=== PATIENT | female | born 1980 | race Caucasian/White ===

== ENCOUNTER 2020-02-10 22:35 | Emergency (ER) | payer MEDICAID, SELFPAY ==
[2020-02-10 22:50] VITALS: BP 127/81; PULSE 75; RESP 18; TEMP 37.1; O2SAT 93; BMI 31.8
--- NOTE | 2020-02-10 22:56 | PC.NURSE ---
PATIENT STATES SHE CANNOT GET HER PEE TO COME OUT UNLESS SHE COUGHS I AM SWELLED UP AND CANNOT EMPTY MY BOWELS PATIENT STATES THAT HER LEGS FEEL LIKE THEY ARE VERY HEAVY AND SHE HURTS IN HER LEGS, ABDOMEN, AND BACK. PATIENT STATES THAT HER WHOLE ABDOMEN HURTS AND FEELS AND LOOKS SWOLLEN.
[2020-02-10 23:02] VITALS: BP 154/101; PULSE 70; RESP 14; O2SAT 95
--- NOTE | 2020-02-10 23:35 | CTR_ITS ---
PROCEDURE INFORMATION: Exam: CT Lumbar Spine Without Contrast Exam date and time: 02/10/2020 12:06 AM Age: 40 years old Clinical indication: Low back pain; Prior surgery; Surgery date: 6+ months; Surgery type: L-spine, hyst TECHNIQUE: Imaging protocol: Computed tomography images of the lumbar spine without contrast. Total DLP: 2041.67 mGy-cm Radiation optimization: All CT scans at this facility use at least one of these dose optimization techniques: automated exposure control; mA and/or kV adjustment per patient size (includes targeted exams where dose is matched to clinical indication); or iterative reconstruction. COMPARISON: [place] [id number] 12/24/2013 11:05 AM FINDINGS: A transitional lumbosacral vertebra demonstrating left-sided partial sacralization is appreciated. L2 corpectomy and L1-L3 spinal fusion changes are appreciated. Mild facet osteoarthritis is seen in the lumbosacral spine region. No canal stenosis is seen. Is is No acute fracture is visualized. Ligamentum flavum hypertrophy and calcifications are present at L2-L3. Spinal alignment is normal. Small renal stones are observed in both kidneys. No hydronephrosis. CT/CT lumbar spine wo con* [id number] IMPRESSION: 1. Mild lumbar spine spondylosis. 2. Nephrolithiasis. Radiation Dose CTDIVOL = (mGy): DLP = 2041.67 (mGy-cm)
--- NOTE | 2020-02-10 23:35 | CTR_ITS ---
PROCEDURE INFORMATION: Exam: CT Abdomen And Pelvis With Contrast Exam date and time: 02/10/2020 12:06 AM Age: 40 years old Clinical indication: Abdominal pain; Generalized; Prior surgery; Surgery date: 6+ months; Surgery type: Hyst, l-spine; Additional info: Abd pain TECHNIQUE: Imaging protocol: Computed tomography of the abdomen and pelvis with intravenous contrast. Total DLP: 1062.18 mGy-cm Radiation optimization: All CT scans at this facility use at least one of these dose optimization techniques: automated exposure control; mA and/or kV adjustment per patient size (includes targeted exams where dose is matched to clinical indication); or iterative reconstruction. Contrast material: OMNI 300; Contrast volume: 95 ml; Contrast route: IV; COMPARISON: CR Pelvis AP 1 or 2 views* [id number] 05/16/2019 7:55 PM FINDINGS: Liver: Mild hepatic steatosis is appreciated. Gallbladder and bile ducts: Normal. No calcified stones. No ductal dilation. Pancreas: Normal. No ductal dilation. Spleen: Normal. No splenomegaly. Adrenals: Normal. No mass. Kidneys and ureters: Tiny renal stones are present in both kidneys. Several subcentimeter round hypodense lesions are present in both kidneys that are too small to characterize but are likely small cysts. No ureteral stone or hydronephrosis. Stomach and bowel: Unremarkable. No obstruction. No mucosal thickening. Appendix: The appendix is normal. Intraperitoneal space: Unremarkable. No free air. No significant fluid collection. Vasculature: Unremarkable. No abdominal aortic aneurysm. Lymph nodes: Unremarkable. No enlarged lymph nodes. Bladder: Urinary bladder wall thickening is noted. Reproductive: The uterus is absent. The ovaries appear normal. Bones/joints: L2 corpectomy and L1-L3 spinal fusion changes are noted. Mild degenerative changes are seen in the lumbar spine and bilateral SI joints. A right hip arthroplasty is appreciated. Soft tissues: Unremarkable. CT/CT abdomen pelvis w con* [id number] IMPRESSION: 1. Possible mild cystitis, correlate with urinalysis. 2. Nephrolithiasis. No ureteral stone or hydronephrosis. 3. Mild hepatic steatosis. COMMENTS: Consistent with the [employer]'s Incidental Findings Committee white paper (J Am Violeta Radiol 2018): Any incidental cystic renal lesion classified in this report as too small to characterize or simple appearing is likely a benign cyst. No follow-up imaging is recommended for these lesions per consensus recommendations based on imaging criteria. Radiation Dose CTDIVOL = (mGy): DLP = 1062.18 (mGy-cm)
--- NOTE | 2020-02-10 23:44 | W.ED.ABDPA2 ---
HPI - Abdominal Pain General: Chief Complaint: Abdominal Pain Stated Complaint: abdominal pain, trouble walking Time Seen by Provider: 02/10/20 22:44 History of Present Illness: HPI narrative: 40-year-old female presents with back and abdominal pain. She states that she has been constipated, and has been having trouble emptying her bladder. She can only urinate when she coughs hard. She relates this to back pain that is been going on for 1.5 years. She has been seen multiple times for this complaint. She was diagnosed 4 days ago with a urinary tract infection. Denies any fever. She denies any vomiting. She states she has had chronic back pain for years and has had surgery on her back. Again she has had similar complaints, for which she has presented to the ER before. She had an MRI that was negative for any spinal stenosis in May. MD elicited complaint: abdominal pain Pertinent past history: constipation and past UTI Onset (ago): year(s) (1.5) Pain Consistency: constant Severity: similar to previous episodes Quality: cramping Migration to: other (back) Relieving factors: nothing Associated Symptoms: Denies chills, dysuria, fever(s), hematuria, nausea and vomiting Review of Systems Const: Denies: fever or chills Eyes: Denies: change in vision or blurry vision ENMT: Denies: painful swallowing or post nasal drip Card: Denies: chest pain, palpitations or edema Resp: Denies: shortness of breath, productive cough, non-productive cough or wheezing GI: Reports: abdominal pain; Denies: nausea or vomiting : Reports: urinary urgency; Denies: painful urination, urinary frequency or blood in urine Musc: Reports: back pain; Denies: neck pain, redness or joint warmth Skin/Breast: Denies: rash, itching or redness Neuro: Denies: headache, dizziness or vertigo Psych: Denies: anxiety PFSH ED PFSH: Social History Smoking and tobacco status: current every day smoker Physical Exam Const: GENERAL APPEARANCE: well developed ORIENTATION/CONSCIOUSNESS: Yes oriented to person, Yes oriented to place and Yes oriented to time HENMT: COMMON NORMALS: external ears normal and external nose normal FACE & SINUS: normal facial exam NOSE: external nose normal and no nasal discharge EXTERNAL EAR: Yes external ears normal MOUTH: tongue normal Eye: COMMON NORMALS: PERRL, EOMs intact bilaterally and conjunctivae normal EYELID: eyelids normal CONJUNCTIVA: Yes conjunctivae normal PUPIL: Yes PERRL Neck/C-Spine: COMMON NORMALS: full ROM GENERAL: No tracheal deviation Chest: COMMONS NORMALS: inspection of chest normal CHEST: No tenderness Resp: COMMON NORMALS: clear to auscultation bilaterally EFFORT & INSPECTION: No tachypneic, No respiratory distress, No retractions, No uses accessory muscles and No tracheal deviation AUSCULTATION: clear to auscultation bilaterally, no rhonchi, no wheezes and lung sounds not diminished Cardio: COMMON NORMALS: regular rate and regular rhythm RATE: regular rate RHYTHM: regular rhythm HEART SOUNDS: no murmurs PERIPHERAL PULSES: radial pulses present GI: INSPECTION: No abdominal distension AUSCULTATION: No hyperactive bowel sounds and No hypoactive bowel sounds PALPATION: No guarding and No rigid PERCUSSION: no dullness to percussion and no tympanic to percussion Neuro: SENSORIUM/ORIENTATION: Yes oriented to person, Yes oriented to place and Yes oriented to time Psych: COMMON NORMALS: mental status grossly normal Skin: COMMON NORMALS: no rashes or lesions noted GENERAL SKIN EXAM: no rashes or lesions noted Course Vital Signs: Vital signs: Vital Signs Temperature 98.7 F 02/10/20 22:50 Pulse Rate 71 02/11/20 02:27 Respiratory Rate 12 02/11/20 02:27 Blood Pressure 120/66 02/11/20 02:27 Pulse Oximetry 98 02/11/20 02:27 MDM - Abdominal Pain MDM Narrative: Medical decision making narrative: 40-year-old female presenting with abdominal pain, back pain, and inability to urinate. She states she can only urinate when she coughs in small amounts. She has been diagnosed with a cystitis several times. She just finished a round of antibiotics. Her white blood cell count is normal. Her hemoglobin is 14. Her urinalysis is essentially negative, but again she just finished antibiotics for cystitis. CT of the belly shows evidence of cystitis. No other acute findings. CT of the lumbar spine fails to reveal any central canal stenosis. She had an MRI for similar complaints back in May that was negative for any central canal stenosis. She was straight cathed, with 425 cc out. She is positive for amphetamines. Obviously sympathomimetics would cause urinary retention symptoms. This was explained to her. She will be treated for continued cystitis. She was told to follow-up with urology following her primary care appointment for this chronic complaint. Lab Data: Labs: Lab Results 02/10/20 02/10/20 02/10/20 Range/Units 23:40 23:40 23:40 WBC 8.2 (4.0-10.0) 10^3/ uL RBC 4.48 (4.1-5.3) 10^6/u L Hgb 13.8 (11.5-15.3) g/dL Hct 42.6 (37.0-47.0) % MCV 95.1 (81-99) fL MCH 30.8 (28.0-34.0) pg MCHC 32.4 (30.0-36.0) g/dL RDW 13.2 (12.1-15.1) % Plt Count 192 (130-400) 10^3/c mm MPV 11.1 H (7.4-10.4) fL Neut % (Auto) 72.7 % Lymph % (Auto) 18.9 % [place] % (Auto) 7.2 % Eos % (Auto) 0.7 % Baso % (Auto) 0.1 % Neut # (Auto) 6.0 (1.8-7.7) 10^3/u L Lymph # (Auto) 1.6 (0.8-4.8) 10^3/u L [place] # (Auto) 0.6 (0.2-0.9) 10^3/u L Eos # (Auto) 0.1 (0.0-0.8) 10^3/u L Baso # (Auto) 0.0 (0.0-0.1) 10^3/u L Nucleated RBC % (a uto) 0 % Nucleated RBCs # 0.0 /100WBC Sodium 136 (136-145) mmol/L Potassium 3.5 (3.5-5.1) mmol/L Chloride 100 (98-107) mmol/L Carbon Dioxide 23 (22-29) mmol/L Anion Gap 16.5 (5-19) BUN 9 (6-20) mg/dL Creatinine 0.6 (0.5-0.9) mg/dL GFR Calculation 111.9 (90-130) mL/min Glucose 104 (65-115) mg/dL Calculated Osmolal ity 278 L (285-295) mOsm/k g Calcium 9.5 (8.5-10.5) mg/dL Total Bilirubin 0.5 (0.15-1.2) mg/dL AST 39 H (0-32) U/L ALT 56 H (0-33) U/L Alkaline Phosphata se 68 (35-105) IU/L Creatine Kinase 95 (26-192) U/L Total Protein 6.7 (6.6-8.7) g/dL Albumin 4.1 (3.5-5.2) g/dL Globulin 2.6 (1.3-4.6) g/dL Vitamin B12 399 (232-1245) pg/mL HCG, Qual Negative (Negative) Urine Color (Yellow) Urine Appearance (CLEAR) Urine pH (5-7) Ur Specific Gravit y (1.005-1.030) Urine Protein (Negative) Urine Glucose (UA) (Normal) Urine Ketones (Negative) Urine Blood (Negative) Urine Nitrate (Negative) Urine Bilirubin (NEGATIVE) Urine Urobilinogen (Negative) mg/dL Ur Leukocyte Kamla ase (Negative) Urine Opiates Scre en (Negative) ng/mL Ur Barbiturates Sc reen (Negative) ng/mL Ur Phencyclidine S crn (Negative) ng/mL Ur Amphetamines Sc reen (Negative) ng/mL U Benzodiazepines Scrn (Negative) ng/mL Urine Cocaine Scre en (Negative) ng/mL U Marijuana (THC) Screen (Negative) ng/mL Ethyl Alcohol < 10 (0-10) mg/dL 02/11/20 02/11/20 Range/Units 00:06 00:06 WBC (4.0-10.0) 10^3/ uL RBC (4.1-5.3) 10^6/u L Hgb (11.5-15.3) g/dL Hct (37.0-47.0) % MCV (81-99) fL MCH (28.0-34.0) pg MCHC (30.0-36.0) g/dL RDW (12.1-15.1) % Plt Count (130-400) 10^3/c mm MPV (7.4-10.4) fL Neut % (Auto) % Lymph % (Auto) % [place] % (Auto) % Eos % (Auto) % Baso % (Auto) % Neut # (Auto) (1.8-7.7) 10^3/u L Lymph # (Auto) (0.8-4.8) 10^3/u L [place] # (Auto) (0.2-0.9) 10^3/u L Eos # (Auto) (0.0-0.8) 10^3/u L Baso # (Auto) (0.0-0.1) 10^3/u L Nucleated RBC % (a uto) % Nucleated RBCs # /100WBC Sodium (136-145) mmol/L Potassium (3.5-5.1) mmol/L Chloride (98-107) mmol/L Carbon Dioxide (22-29) mmol/L Anion Gap (5-19) BUN (6-20) mg/dL Creatinine (0.5-0.9) mg/dL GFR Calculation (90-130) mL/min Glucose (65-115) mg/dL Calculated Osmolal ity (285-295) mOsm/k g Calcium (8.5-10.5) mg/dL Total Bilirubin (0.15-1.2) mg/dL AST (0-32) U/L ALT (0-33) U/L Alkaline Phosphata se (35-105) IU/L Creatine Kinase (26-192) U/L Total Protein (6.6-8.7) g/dL Albumin (3.5-5.2) g/dL Globulin (1.3-4.6) g/dL Vitamin B12 (232-1245) pg/mL HCG, Qual (Negative) Urine Color Yellow (Yellow) Urine Appearance Clear (CLEAR) Urine pH 7 (5-7) Ur Specific Gravit y 1.010 (1.005-1.030) Urine Protein Neg (Negative) Urine Glucose (UA) Norm (Normal) Urine Ketones 1+ H (Negative) Urine Blood Neg (Negative) Urine Nitrate Negative (Negative) Urine Bilirubin Neg (NEGATIVE) Urine Urobilinogen Norm (Negative) mg/dL Ur Leukocyte Kamla ase Negative (Negative) Urine Opiates Scre en Negative (Negative) ng/mL Ur Barbiturates Sc reen Negative (Negative) ng/mL Ur Phencyclidine S crn Negative (Negative) ng/mL Ur Amphetamines Sc reen Positive H (Negative) ng/mL U Benzodiazepines Scrn Negative (Negative) ng/mL Urine Cocaine Scre en Negative (Negative) ng/mL U Marijuana (THC) Screen Negative (Negative) ng/mL Ethyl Alcohol (0-10) mg/dL Discharge Plan Discharge Patient Disposition: Home, Self-Care Clinical Impression: Abdominal pain Qualifiers: Abdominal location: generalized Qualified Code(s): R10.84 - Generalized abdominal pain UTI (urinary tract infection) Qualifiers: Urinary tract infection type: acute cystitis Hematuria presence: without hematuria Qualified Code(s): N30.00 - Acute cystitis without hematuria Condition: Stable Prescriptions: New Macrobid 100 mg capsule 100 mg PO BID 7 Days Qty: 14 RF: 0 Discharge Orders: Discharge Order (Routine); Ordered 02/11/20 Ordered By: Xavier Cuellar Referrals: Mary Sweet MD [Family Provider] - 4-7 days Discharge Diet: Advance as tolerated Discharge Activity: Increase activity as tolerated Patient Instructions: Chronic Urinary Retention in Women (ED), Abdominal Pain (ED) Activity Restrictions/Additional Instructions: Return for fever greater than 100, worsening symptoms despite treatment. It is possible/probable that stimulant use such as amphetamine could cause your urinary retention problem. 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
[2020-02-11 00:09] LABS: Basophils % 0.1 %; Eosinophils # 0.1 10^3/uL (0.0-0.8); Eosinophils % 0.7 %; Hematocrit 42.6 % (37.0-47.0); Hemoglobin 13.8 g/dL (11.5-15.3); Lymphocytes # 1.6 10^3/uL (0.8-4.8); Lymphocytes % 18.9 %; Mean Corpuscular HGB Conc 32.4 g/dL (30.0-36.0); Mean Corpuscular Hemoglobin 30.8 pg (28.0-34.0); Mean Corpuscular Volume 95.1 fL (81-99); Mean Platelet Volume 11.1 fL (7.4-10.4); Monocytes # 0.6 10^3/uL (0.2-0.9); Monocytes % 7.2 %; Neutrophils % 72.7 %; Nucleated Red Blood Cells % 0 %; Platelet Count 192 10^3/cmm (130-400); Red Blood Count 4.48 10^6/uL (4.1-5.3); Red Cell Distribution Width 13.2 % (12.1-15.1); White Blood Count 8.2 10^3/uL (4.0-10.0)
[2020-02-11 00:19] LABS: HCG, Serum Qual Negative (Negative)
[2020-02-11 00:20] VITALS: BP 122/76; RESP 17
[2020-02-11 00:24] LABS: Add Urine Microscopic? NO
[2020-02-11 00:28] LABS: Alanine Aminotransferase 56 U/L (0-33); Albumin Level 4.1 g/dL (3.5-5.2); Alkaline Phosphatase 68 IU/L (35-105); Anion Gap 16.5 (5-19); Aspartate Amino Transferase 39 U/L (0-32); Blood Urea Nitrogen 9 mg/dL (6-20); Calcium 9.5 mg/dL (8.5-10.5); Carbon Dioxide 23 mmol/L (22-29); Chloride 100 mmol/L (98-107); Creatine Phosphokinase 95 U/L (26-192); Globulin 2.6 g/dL (1.3-4.6); Glomerular Filtration Rate 111.9 mL/min (90-130); Glucose 104 mg/dL (65-115); Osmolality Calculated 278 mOsm/kg (285-295); Potassium 3.5 mmol/L (3.5-5.1); Sodium 136 mmol/L (136-145); Total Bilirubin 0.5 mg/dL (0.15-1.2); Total Protein 6.7 g/dL (6.6-8.7)
[2020-02-11 00:29] LABS: Alcohol Level < 10 mg/dL (0-10)
[2020-02-11 00:34] LABS: Amphetamines Screen Urine Positive (Negative); Barbiturates Screen Urine Negative (Negative); Benzodiazepines Screen Urine Negative (Negative); Cocaine Screen Urine Negative (Negative); Opiate Screen Urine Negative (Negative); PCP Screen Urine Negative (Negative); THC Screen Urine Negative (Negative)
[2020-02-11 00:35] LABS: Bilirubin Urine Neg (NEGATIVE); Blood Urine Neg (Negative); Glucose Urine UA Norm (Normal); Ketones Urine 1+ (Negative); Leukocyte Esterase Urine Negative (Negative); Nitrate Urine Negative (Negative); Protein Urine Neg (Negative); Urine Appearance Clear (CLEAR); Urine Color Yellow (Yellow); Urobilinogen Urine Norm (Negative); pH Urine 7 (5-7)
[2020-02-11 00:56] VITALS: BP 115/66; PULSE 69; RESP 16; O2SAT 94
[2020-02-11 01:13] LABS: Vitamin B12 399 pg/mL (232-1245)
[2020-02-11 01:27] VITALS: BP 106/80; PULSE 68; RESP 15; O2SAT 95
[2020-02-11 02:15] VITALS: BP 109/60; PULSE 69; RESP 16; O2SAT 94
[2020-02-11 02:27] VITALS: BP 120/66; PULSE 71; RESP 12; O2SAT 98
== END 2020-02-11 02:39 | disposition home or self-care (01) ==
PROVIDERS: Emergency Provider Emergency Medicine; Family Provider Family Medicine
DX: N39.0 Urinary tract infection, site not specified (principal); R10.9 Unspecified abdominal pain; F17.200 Nicotine dependence, unspecified, uncomplicated
CPT/HCPCS: 12345; 72131; 74177; 80053; 80306; 80307; 81003; 82550; 82607; 84703; 85025; 99283; Q9967

== ENCOUNTER 2020-04-04 19:51 | Emergency (ER) | payer MEDICAID, SELFPAY ==
[2020-04-04] VITALS (14 sets, daily range): BP systolic 109–118; BP diastolic 74–89; PULSE 65–79; RESP 14–18; TEMP 36.6; O2SAT 92–98; BMI 31.8
--- NOTE | 2020-04-04 20:13 | PC.NURSE ---
patient states that whenever she eats she starts having swelling in her abdomen, mid and lower bilateral back pain, lower rib pain, and pain in her abdomen. Patient states that she feels pressure in her vaginal area and that it feels like it is about to fall out . Patient states that it has been going on for years but the last couple months it has been getting worse.
--- NOTE | 2020-04-04 20:14 | ED_ITS ---
HPI - General Adult General: Chief complaint: General Medical Stated complaint: back/abd pain Time Seen by Provider: 04/04/20 20:08 History of Present Illness: HPI narrative: Patient is a 40-year-old female who comes to the ED with abdominal pain. Patient says she has been having this on and off abdominal pain for over 1 to 2 weeks. She says in the last 2 to 3 days the abdominal pain has become more severe. She describes feeling like her stomach is very bloated and pain is throughout the entire abdomen. Pain feels like building pressure in her abdomen. She currently rates the pain a 9 out of 10. She has some nausea but has not vomited. She has not had a bowel movement in about 2 days. She does describe burping more frequently. Endorses chills but denies any fever, chest pain, shortness of breath, diarrhea, blood in stool. Patient states she has had a hysterectomy. Associated symptoms: Reports nausea; Deny chest pain, dyspnea, headache(s), rash, palpitations or vomiting Review of Systems Const: Reports: chills; Denies: fever(s) or fatigue Eyes: Denies: change in vision or eye discomfort ENMT: Denies: throat pain, odynophagia, nasal discharge or nasal congestion Card: Denies: chest pain, palpitations, edema, swelling of feet/ankles, dyspnea on exertion or orthopnea Resp: Denies: dyspnea, productive cough or non-productive cough GI: Reports: abdominal pain and nausea; Denies: vomiting, diarrhea, constipation or hematochezia : Denies: flank pain, dysuria or hematuria Musc: Denies: neck pain, back pain or extremity swelling Skin/Breast: Denies: rash or new lesions Neuro: Denies: headache(s), numbness in extremities or weakness in extremities PFS ED PFSH: Social History Smoking and tobacco status: current every day smoker Physical Exam Const: COMMON NORMALS: patient oriented x3 and alert GENERAL APPEARANCE: cooperative and well hydrated; not comfortable (Patient appears uncomfortable and in some pain.) HENMT: COMMON NORMALS: normocephalic HEAD & SCALP: normocephalic MOUTH: Normal oral and palatal mucosa present THROAT: posterior oropharynx normal and uvula midline Eye: COMMON NORMALS: Equal, round and reactive pupils present and conjunctivae normal CONJUNCTIVA: Yes conjunctivae normal PUPIL: Yes Equal, round and reactive pupils present Neck/C-Spine: COMMON NORMALS: supple GENERAL: Yes normal visual inspection Resp: COMMON NORMALS: normal respiratory effort, No retractions and No use of accessory muscles AUSCULTATION: wheezes expiratory wheezes and lower bilater ally Cardio: COMMON NORMALS: regular rate, regular rhythm, S1 normal heart sound present, S2 normal heart sound present, No gallops present (Cardio), No clicks present (Cardio), No murmurs present (Cardio) and Peripheral pulses 2+ throughout RATE: regular rate RHYTHM: regular rhythm HEART SOUNDS: S1 normal heart sound present and S2 normal heart sound present PERIPHERAL PULSES: Peripheral pulses 2+ throughout GI: COMMON NORMALS: Soft to palpation and no masses INSPECTION: Yes abdominal distension (mild distension), Yes central obesity and Yes striae AUSCULTATION: Yes normoactive bowel sounds PALPATION: Yes Soft to palpation and Yes Tenderness to palpation present (GI) Details: other (Mild tenderness throughout all 4 quadrants of abdomen.) : BLADDER/KIDNEY EXAM: Yes CVA tenderness on the right (mild) Back/Pelvis: GENERAL BACK: Yes CVA tenderness Extremity: COMMON NORMALS: normal to inspection GENERAL: Yes edema (1+ nonpitting pitting edema in lower extremities bilaterally.) Neuro: COMMON NORMALS: patient oriented x3 and moves all extremities SENSORIUM/ORIENTATION: Yes alert Skin: COMMON NORMALS: no rashes or lesions noted GENERAL SKIN EXAM: no rashes or lesions noted and dry skin Course Vital Signs: Vital signs: Vital Signs Temperature 97.9 F 04/04/20 19:59 Pulse Rate 75 04/04/20 22:56 Respiratory Rate 16 04/04/20 22:56 Blood Pressure 109/74 04/04/20 22:56 Pulse Oximetry 92 04/04/20 22:56 MDM - General Adult MDM Narrative: Medical decision making narrative: Patient is a 40-year-old female who comes to the ED with abdominal pain and cramping. Physical exam was remarkable for some wheezing in the lungs and abdominal tenderness throughout abdomen. Vitals blood pressure 118/81, pulse 76 respirations 18 and temp 97.9. CBC, CMP, lipase and UA were all unremarkable. hCG was negative. Patient was given a DuoNeb treatment and wheezing improved. CT of the abdomen and pelvis showed no acute findings. Patient was diagnosed with abdominal cramping and given a prescription for Bentyl to treat abdominal cramping. Patient told to follow-up with PCP in 7 days for reevaluation. Patient understood and agreed with plan. Lab Data: Attestation: I reviewed the patient's lab results. Labs: Lab Results 04/04/20 04/04/20 04/04/20 Range/Units 20:10 20:10 20:36 WBC 7.1 (4.0-10.0) 10^3/ uL RBC 4.97 (4.1-5.3) 10^6/u L Hgb 14.8 (11.5-15.3) g/dL Hct 45.4 (37.0-47.0) % MCV 91.3 (81-99) fL MCH 29.8 (28.0-34.0) pg MCHC 32.6 (30.0-36.0) g/dL RDW 12.7 (12.1-15.1) % Plt Count 245 (130-400) 10^3/c mm MPV 10.9 H (7.4-10.4) fL Neut % (Auto) 65.2 % Lymph % (Auto) 25.6 % Bleckley % (Auto) 7.1 % Eos % (Auto) 1.7 % Baso % (Auto) 0.3 % Neut # (Auto) 4.6 (1.8-7.7) 10^3/u L Lymph # (Auto) 1.8 (0.8-4.8) 10^3/u L Bleckley # (Auto) 0.5 (0.2-0.9) 10^3/u L Eos # (Auto) 0.1 (0.0-0.8) 10^3/u L Baso # (Auto) 0.0 (0.0-0.1) 10^3/u L Nucleated RBC % (a uto) 0 % Nucleated RBCs # 0.0 /100WBC Sodium 141 (136-145) mmol/L Potassium 4.2 (3.5-5.1) mmol/L Chloride 103 (98-107) mmol/L Carbon Dioxide 27 (22-29) mmol/L Anion Gap 15.2 (5-19) BUN 9 (6-20) mg/dL Creatinine 0.7 (0.5-0.9) mg/dL GFR Calculation 93.6 (90-130) mL/min Glucose 104 (65-115) mg/dL Calculated Osmolal ity 288 (285-295) mOsm/k g Calcium 10.0 (8.5-10.5) mg/dL Total Bilirubin 0.5 (0.15-1.2) mg/dL AST 15 (0-32) U/L ALT 17 (0-33) U/L Alkaline Phosphata se 57 (35-105) IU/L Total Protein 7.1 (6.6-8.7) g/dL Albumin 4.5 (3.5-5.2) g/dL Globulin 2.6 (1.3-4.6) g/dL Lipase 26 (13-60) U/L HCG, Qual Negative (Negative) Urine Color (Yellow) Urine Appearance (CLEAR) Urine pH (5-7) Ur Specific Gravit y (1.005-1.030) Urine Protein (Negative) Urine Glucose (UA) (Normal) Urine Ketones (Negative) Urine Blood (Negative) Urine Nitrate (Negative) Urine Bilirubin (NEGATIVE) Urine Urobilinogen (Negative) mg/dL Ur Leukocyte Kamla ase (Negative) Urine RBC (0-2) /hpf Urine WBC (0-5) /hpf Ur Squamous Epith Cells (0-5) Ur Transition Epit h Cell /hpf Ur Renal Epithelia l Cell /hpf Urine Bacteria (NONE) Urine Mucus 05/21/20 Range/Units 20:36 WBC (4.0-10.0) 10^3/ uL RBC (4.1-5.3) 10^6/u L Hgb (11.5-15.3) g/dL Hct (37.0-47.0) % MCV (81-99) fL MCH (28.0-34.0) pg MCHC (30.0-36.0) g/dL RDW (12.1-15.1) % Plt Count (130-400) 10^3/c mm MPV (7.4-10.4) fL Neut % (Auto) % Lymph % (Auto) % Bleckley % (Auto) % Eos % (Auto) % Baso % (Auto) % Neut # (Auto) (1.8-7.7) 10^3/u L Lymph # (Auto) (0.8-4.8) 10^3/u L Bleckley # (Auto) (0.2-0.9) 10^3/u L Eos # (Auto) (0.0-0.8) 10^3/u L Baso # (Auto) (0.0-0.1) 10^3/u L Nucleated RBC % (a uto) % Nucleated RBCs # /100WBC Sodium (136-145) mmol/L Potassium (3.5-5.1) mmol/L Chloride (98-107) mmol/L Carbon Dioxide (22-29) mmol/L Anion Gap (5-19) BUN (6-20) mg/dL Creatinine (0.5-0.9) mg/dL GFR Calculation (90-130) mL/min Glucose (65-115) mg/dL Calculated Osmolal ity (285-295) mOsm/k g Calcium (8.5-10.5) mg/dL Total Bilirubin (0.15-1.2) mg/dL AST (0-32) U/L ALT (0-33) U/L Alkaline Phosphata se (35-105) IU/L Total Protein (6.6-8.7) g/dL Albumin (3.5-5.2) g/dL Globulin (1.3-4.6) g/dL Lipase (13-60) U/L HCG, Qual (Negative) Urine Color Yellow (Yellow) Urine Appearance Hazy A (CLEAR) Urine pH 7 (5-7) Ur Specific Gravit y 1.010 (1.005-1.030) Urine Protein Neg (Negative) Urine Glucose (UA) Norm (Normal) Urine Ketones Negative (Negative) Urine Blood Neg (Negative) Urine Nitrate Negative (Negative) Urine Bilirubin Neg (NEGATIVE) Urine Urobilinogen 1 H (Negative) mg/dL Ur Leukocyte Kamla ase 1+ H (Negative) Urine RBC 0-4 H (0-2) /hpf Urine WBC None (0-5) /hpf Ur Squamous Epith Cells 55-80 H (0-5) Ur Transition Epit h Cell None /hpf Ur Renal Epithelia l Cell N /hpf Urine Bacteria 3+ H (NONE) Urine Mucus None Imaging Data^: CT Abd/Pel: Attestation: I personally reviewed and interpreted this imaging study as follows: Radiologist's impression: [address] [place] [address] CT Scan Report Signed Patient: Sandra Camejo Unit #: [id number] : 1980 Acct#:[id number] Age/Sex: 40 / F ADM Date: 04/04/20 Loc: ER Room/Bed: Attending Dr: Ordering Provider/Ordering MD: Thai Ray Date of Service: 04/04/20 Procedure(s): CT abdomen pelvis w con* [id number] Accession Number(s): [id number] Report Number: [id number] PROCEDURE INFORMATION: Exam: CT Abdomen And Pelvis With Contrast Exam date and time: 04/04/2020 8:57 PM Age: 40 years old Clinical indication: Abdominal pain; Acute; Prior surgery; Surgery date: 6+ months; Surgery type: Hyst L. Spine TECHNIQUE: Imaging protocol: Computed tomography of the abdomen and pelvis with intravenous contrast. Radiation optimization: All CT scans at this facility use at least one of these dose optimization techniques: automated exposure control; mA and/or kV adjustment per patient size (includes targeted exams where dose is matched to clinical indication); or iterative reconstruction. Contrast material: OMNI; Contrast volume: 300 ml; Contrast route: IV; COMPARISON: CT abdomen pelvis w con* [id number] 02/11/2020 12:27 AM RADIATION DOSE METRICS: Total DLP: 1026.51 mGy-cm FINDINGS: Lungs: Visualized portions of the lung bases are clear. Liver: Diffuse fatty infiltration of the liver. Gallbladder and bile ducts: The gallbladder is unremarkable. Pancreas: The pancreas is unremarkable. Spleen: The spleen is unremarkable. Adrenals: The adrenal glands are unremarkable. Kidneys and ureters: Tiny stone in the right mid kidney. Tiny hypodensity in the right kidney lower pole, statistically likely to be benign. Small stone in the left mid kidney. A few small hypodensities are scattered in the left kidney, statistically likely to be benign. Stomach and bowel: No bowel obstruction identified. No diverticulitis identified. Appendix: A normal-appearing appendix is seen in the right lower quadrant. Intraperitoneal space: No free intraperitoneal air identified. No free intraperitoneal fluid identified. Vasculature: The abdominal aorta is nonaneurysmal. Lymph nodes: Unremarkable. Bladder: Unremarkable as visualized. Reproductive: The uterus is not seen and is presumed surgically absent. Bones/joints: Status post surgical fusion of L1, L2, and L3 with corpectomy of L2. Soft tissues: Unremarkable. Other findings: If additional or more detailed information is needed, an addendum can be generated on request. CT/CT abdomen pelvis w con* [id number] IMPRESSION: 1. No acute intra-abdominal/intrapelvic process identified. COMMENTS: Consistent with the [employer]'s Incidental Findings Committee white paper (J Am Violeta Radiol 2018): Any incidental renal lesion less than 1.0 cm or classified as too small to characterize, or any incidental cystic renal lesion characterized as simple-appearing, is likely benign. No follow-up imaging is recommended for these lesions per consensus recommendations based on imaging criteria. Radiation Dose CTDIVOL = (mGy): DLP = 1026.51 (mGy-cm) Dictated By: Owen Lerma MD Signed By: Owen Lerma MD Signed Date/Time: 04/04/202226 DD/ 25 Discharge Plan Discharge Patient Disposition: Home, Self-Care Clinical Impression: Abdominal cramping Condition: Stable Prescriptions: New dicyclomine 20 mg tablet 20 mg PO QID Qty: 30 RF: 0 Discharge Orders: Discharge Order (Routine); Ordered 04/04/20 Ordered By: Thai Ray Referrals: Mary Sweet MD [Primary Care Provider] - Discharge Diet: Advance as tolerated Discharge Activity: Resume usual activity Patient Instructions: Abdominal Pain - Adult Activity Restrictions/Additional Instructions: Follow-up with your PCP in 7 days for reevaluation. Take prescribed dicyclomine to help with abdominal pain and cramping. Drink plenty of fluids and stay hydrated. You can also take Tylenol or ibuprofen for any pain and fevers. Return to ED if symptoms worsen. Discharge Date/Time: 04/04/20 23:01 Coding Level of Care Code ED Judicial Clerk for Chg Fwd Exam Comprehensive
--- NOTE | 2020-04-04 20:19 | PC.NURSE ---
patient states she has broken her back in 2003 and has had lyme disease.
--- NOTE | 2020-04-04 20:21 | PC.NURSE ---
patient ambulated to bathroom with clean catch packaging, patient provided instructions on proper urine collection procedures.
[2020-04-04 20:22] LABS: Basophils % 0.3 %; Eosinophils # 0.1 10^3/uL (0.0-0.8); Eosinophils % 1.7 %; Hematocrit 45.4 % (37.0-47.0); Hemoglobin 14.8 g/dL (11.5-15.3); Lymphocytes # 1.8 10^3/uL (0.8-4.8); Lymphocytes % 25.6 %; Mean Corpuscular HGB Conc 32.6 g/dL (30.0-36.0); Mean Corpuscular Hemoglobin 29.8 pg (28.0-34.0); Mean Corpuscular Volume 91.3 fL (81-99); Mean Platelet Volume 10.9 fL (7.4-10.4); Monocytes # 0.5 10^3/uL (0.2-0.9); Monocytes % 7.1 %; Neutrophils # 4.6 10^3/uL (1.8-7.7); Neutrophils % 65.2 %; Nucleated Red Blood Cells % 0 %; Platelet Count 245 10^3/cmm (130-400); Red Blood Count 4.97 10^6/uL (4.1-5.3); Red Cell Distribution Width 12.7 % (12.1-15.1); White Blood Count 7.1 10^3/uL (4.0-10.0)
[2020-04-04 20:37] LABS: Alanine Aminotransferase 17 U/L (0-33); Albumin Level 4.5 g/dL (3.5-5.2); Alkaline Phosphatase 57 IU/L (35-105); Anion Gap 15.2 (5-19); Aspartate Amino Transferase 15 U/L (0-32); Blood Urea Nitrogen 9 mg/dL (6-20); Carbon Dioxide 27 mmol/L (22-29); Chloride 103 mmol/L (98-107); Creatinine Clr Calc Pharmacy 110.2652; Globulin 2.6 g/dL (1.3-4.6); Glomerular Filtration Rate 93.6 mL/min (90-130); Glucose 104 mg/dL (65-115); Lipase 26 U/L (13-60); Osmolality Calculated 288 mOsm/kg (285-295); Potassium 4.2 mmol/L (3.5-5.1); Sodium 141 mmol/L (136-145); Total Bilirubin 0.5 mg/dL (0.15-1.2); Total Protein 7.1 g/dL (6.6-8.7)
--- NOTE | 2020-04-04 20:52 | CTR_ITS ---
PROCEDURE INFORMATION: Exam: CT Abdomen And Pelvis With Contrast Exam date and time: 04/04/2020 8:57 PM Age: 40 years old Clinical indication: Abdominal pain; Acute; Prior surgery; Surgery date: 6+ months; Surgery type: Hyst L. Spine TECHNIQUE: Imaging protocol: Computed tomography of the abdomen and pelvis with intravenous contrast. Radiation optimization: All CT scans at this facility use at least one of these dose optimization techniques: automated exposure control; mA and/or kV adjustment per patient size (includes targeted exams where dose is matched to clinical indication); or iterative reconstruction. Contrast material: OMNI; Contrast volume: 300 ml; Contrast route: IV; COMPARISON: CT abdomen pelvis w con* [id number] 02/11/2020 12:27 AM RADIATION DOSE METRICS: Total DLP: 1026.51 mGy-cm FINDINGS: Lungs: Visualized portions of the lung bases are clear. Liver: Diffuse fatty infiltration of the liver. Gallbladder and bile ducts: The gallbladder is unremarkable. Pancreas: The pancreas is unremarkable. Spleen: The spleen is unremarkable. Adrenals: The adrenal glands are unremarkable. Kidneys and ureters: Tiny stone in the right mid kidney. Tiny hypodensity in the right kidney lower pole, statistically likely to be benign. Small stone in the left mid kidney. A few small hypodensities are scattered in the left kidney, statistically likely to be benign. Stomach and bowel: No bowel obstruction identified. No diverticulitis identified. Appendix: A normal-appearing appendix is seen in the right lower quadrant. Intraperitoneal space: No free intraperitoneal air identified. No free intraperitoneal fluid identified. Vasculature: The abdominal aorta is nonaneurysmal. Lymph nodes: Unremarkable. Bladder: Unremarkable as visualized. Reproductive: The uterus is not seen and is presumed surgically absent. Bones/joints: Status post surgical fusion of L1, L2, and L3 with corpectomy of L2. Soft tissues: Unremarkable. Other findings: If additional or more detailed information is needed, an addendum can be generated on request. CT/CT abdomen pelvis w con* [id number] IMPRESSION: 1. No acute intra-abdominal/intrapelvic process identified. COMMENTS: Consistent with the [employer]'s Incidental Findings Committee white paper (J Am Violeta Radiol 2018): Any incidental renal lesion less than 1.0 cm or classified as too small to characterize, or any incidental cystic renal lesion characterized as simple-appearing, is likely benign. No follow-up imaging is recommended for these lesions per consensus recommendations based on imaging criteria. Radiation Dose CTDIVOL = (mGy): DLP = 1026.51 (mGy-cm)
[2020-04-04 20:55] LABS: HCG Qualitative Urine. Negative (Negative)
[2020-04-04] MEDS: sodium chloride 0.9% 1,000 ML 999 ML IV (21:09)
[2020-04-04] MEDS: morphine 4 mg/mL SDV 1 mL IVP (21:10)
[2020-04-04] MEDS: ondansetron 2 mg/ML SDV 2 mL 4 MG IVP (21:10)
[2020-04-04 21:31] LABS: Urine Appearance Hazy (CLEAR); Urine Color Yellow (Yellow); pH Urine 7 (5-7)
[2020-04-04 21:32] LABS: Add Urine Microscopic? YES; Bilirubin Urine Neg (NEGATIVE); Blood Urine Neg (Negative); Glucose Urine UA Norm (Normal); Ketones Urine Negative (Negative); Leukocyte Esterase Urine 1+ (Negative); Nitrate Urine Negative (Negative); Protein Urine Neg (Negative); RBC Urine 0-4 /hpf (0-2); Squamous Epithelial Cell Urine 55-80 (0-5); Urobilinogen Urine 1 mg/dL (Negative)
[2020-04-04 21:33] LABS: Add Urine Culture? No; Bacteria Urine 3+; Renal Epithelial Cells Urine N /hpf
[2020-04-04] MEDS: iohexol 300 mg/mL 100 mL Btl IV (21:49)
[2020-04-04] MEDS: ipratropium-albuterol 3 mL Neb INHALATION (22:05)
== END 2020-04-04 23:01 | disposition home or self-care (01) ==
PROVIDERS: Emergency Medicine; Emergency Provider Physician Assistant; PCP Family Medicine
DX: R10.9 Unspecified abdominal pain (principal); F17.210 Nicotine dependence, cigarettes, uncomplicated
CPT/HCPCS: 12345; 36415; 74177; 80053; 81001; 81025; 83690; 85025; 94640; 96361; 96374; 96375; 99283; A9270; J2270; J2405; J7030; Q9967

== ENCOUNTER → 2020-04-15 16:30 | Outpatient (BNVA) | payer MEDICAID, SELFPAY | PROVIDERS: PCP Nurse Practitioner Family; Visit Provider Nurse Practitioner Family | DX: Z11.3 Encounter for screening for infections with a predominantly sexual mode of transmission (principal); R53.83 Other fatigue; N39.0 Urinary tract infection, site not specified; M25.552 Pain in left hip; M47.816 Spondylosis without myelopathy or radiculopathy, lumbar region; G89.29 Other chronic pain; F25.9 Schizoaffective disorder, unspecified; F31.30 Bipolar disorder, current episode depressed, mild or moderate severity, unspecified; F43.10 Post-traumatic stress disorder, unspecified; M54.16 Radiculopathy, lumbar region; R10.9 Unspecified abdominal pain | CPT/HCPCS: 80053; 81003; 82306; 82607; 84443; 85025; 86308; 86592; 87491; 87591; 87661; 87806 ==

== ENCOUNTER 2020-04-15 20:25 | Emergency (ER) | payer MEDICAID, SELFPAY | END 2020-04-16 03:04 | disposition admitted as inpatient to this hospital (09) | LOC: ER 04-29 15:07 | PROVIDERS: Emergency Provider Emergency Medicine; PCP Nurse Practitioner Family | DX: M54.5 Low back pain (principal); R20.0 Anesthesia of skin; F44.4 Conversion disorder with motor symptom or deficit; F17.210 Nicotine dependence, cigarettes, uncomplicated | CPT/HCPCS: 12345; 36415; 72131; 72146; 72148; 74177; 80053; 80306; 80307; 81001; 82550; 83735; 84703; 85025; 85651; 86140; 87086; 94640; 96361; 96365; 96375; 99283; 99285; G0378; J0131; J0696; J2270; J7030; Q9967 ==

== ENCOUNTER 2020-04-15 20:25 | Inpatient (IN) | payer MEDICAID, SELFPAY ==
[2020-04-15 20:29] VITALS: BP 122/86; PULSE 110; RESP 14; TEMP 36.7; O2SAT 93; BMI 31.3
--- NOTE | 2020-04-15 20:36 | CTR_ITS ---
PROCEDURE INFORMATION: Exam: CT Abdomen And Pelvis With Contrast Exam date and time: 04/15/2020 8:40 PM Age: 40 years old Clinical indication: Abdominal pain; Generalized; Prior surgery; Surgery date: 6+ months; Surgery type: Back pain x3 days; Limited HX due to lack of communication from PT TECHNIQUE: Imaging protocol: Computed tomography of the abdomen and pelvis with intravenous contrast. Radiation optimization: All CT scans at this facility use at least one of these dose optimization techniques: automated exposure control; mA and/or kV adjustment per patient size (includes targeted exams where dose is matched to clinical indication); or iterative reconstruction. Contrast material: OMNIPAQUE 300; Contrast volume: 95 ml; Contrast route: IV; COMPARISON: CT abdomen pelvis w con* [id number] 04/04/2020 9:37 PM RADIATION DOSE METRICS: Total DLP: 1441.31 mGy-cm FINDINGS: Mediastinum: A small hiatal hernia is present. Liver: There is a diffuse decrease in hepatic parenchymal density, consistent with fatty infiltration. Gallbladder and bile ducts: Normal. No calcified stones. No ductal dilation. Pancreas: Normal. No ductal dilation. Spleen: Normal. No splenomegaly. Adrenals: Normal. No mass. Kidneys and ureters: There is bilateral nonobstructive nephrolithiasis with multiple calculi measuring up to 3 mm in size. There is no evidence of hydronephrosis. There are multiple renal hypodensities that cannot be further characterized on the current examination. Stomach and bowel: There is no evidence of intestinal perforation or obstruction. There is no evidence of colitis/diverticulitis. Appendix: A normal appendix is identified. Intraperitoneal space: Unremarkable. No free air. No significant fluid collection. Vasculature: There are numerous benign phleboliths in the pelvis. Lymph nodes: Unremarkable.No enlarged lymph nodes. Bladder: The bladder is normal. Reproductive: There has been a hysterectomy. Bones/joints: There is a satisfactory appearance of the postoperative changes right hip and postoperative changes in the lumbar spine. Soft tissues: There is a fat-containing umbilical hernia. Bilateral injection granulomata are noted in the buttocks. CT/CT abdomen pelvis w con* [id number] IMPRESSION: No acute abnormality. No bowel thickening or inflammatory changes. There is bilateral nonobstructive nephrolithiasis. No hydronephrosis. Radiation Dose CTDIVOL = (mGy): DLP = 1441.31 (mGy-cm)
--- NOTE | 2020-04-15 20:36 | CTR_ITS ---
PROCEDURE INFORMATION: Exam: CT Lumbar Spine Without Contrast Exam date and time: 04/15/2020 8:52 PM Age: 40 years old Clinical indication: Low back pain; Prior surgery; Surgery date: 6+ months; Surgery type: Lumbar; RT hip; Patient HX: Back pain x3 days; Limited HX due to lack of communication from PT TECHNIQUE: Imaging protocol: Computed tomography images of the lumbar spine without contrast. Radiation optimization: All CT scans at this facility use at least one of these dose optimization techniques: automated exposure control; mA and/or kV adjustment per patient size (includes targeted exams where dose is matched to clinical indication); or iterative reconstruction. COMPARISON: CT lumbar spine wo con* [id number] 02/11/2020 12:23 AM RADIATION DOSE METRICS: Total DLP: 2486.93 mGy-cm FINDINGS: Vertebrae: No acute fracture. Postoperative changes from L1 through L3 are noted. This has a satisfactory appearance. Chronic appearing mild anterior wedging of T12 is noted with Schmorl's nodes. Discs/Spinal canal/Neural foramina: There are moderate degenerative changes in the spine. No hardware loosening or failure. There is an interbody cage at the operative levels. No focal disc bulge, protrusion or stenosis. Sacrum/coccyx: There is vacuum phenomenon in the left sacroiliac joint. There is a transitional lumbosacral junction with partial lumbarization of the 1st sacral segment. Kidneys and ureters: There is bilateral nonobstructive nephrolithiasis. No hydronephrosis. Soft tissues: Unremarkable. CT/CT lumbar spine wo con* [id number] IMPRESSION: 1. There is bilateral nonobstructive nephrolithiasis. No hydronephrosis. 2. There is a satisfactory appearance of the postoperative lumbar spine. No acute bony abnormality. Radiation Dose CTDIVOL = (mGy): DLP = 2486.93 (mGy-cm)
--- NOTE | 2020-04-15 20:43 | W.ED.BACK ---
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 bilateral Sciatica presence: without sciatica Qualified Code(s): M54.5 - Low back pain Condition: Stable Discharge Date/Time: 04/16/20 03:04 Coding Level of Care Code ED Commercial Relief Driver for Es Fwd Exam Comprehensive
[2020-04-15 20:45] VITALS: BP 122/86; PULSE 102; RESP 18; O2SAT 96
[2020-04-15] MEDS: sodium chloride 0.9% 1,000 ML 999 ML IV (20:59)
[2020-04-15 21:05] LABS: Basophils % 0.3 %; Eosinophils # 0.1 10^3/uL (0.0-0.8); Eosinophils % 1.4 %; Hematocrit 45.6 % (37.0-47.0); Hemoglobin 15.2 g/dL (11.5-15.3); Lymphocytes # 1.9 10^3/uL (0.8-4.8); Lymphocytes % 20.6 %; Mean Corpuscular HGB Conc 33.3 g/dL (30.0-36.0); Mean Corpuscular Hemoglobin 30.2 pg (28.0-34.0); Mean Corpuscular Volume 90.7 fL (81-99); Mean Platelet Volume 10.7 fL (7.4-10.4); Monocytes # 0.7 10^3/uL (0.2-0.9); Neutrophils # 6.6 10^3/uL (1.8-7.7); Neutrophils % 70.4 %; Nucleated Red Blood Cells % 0 %; Platelet Count 263 10^3/cmm (130-400); Red Blood Count 5.03 10^6/uL (4.1-5.3); Red Cell Distribution Width 13.2 % (12.1-15.1); White Blood Count 9.3 10^3/uL (4.0-10.0)
[2020-04-15] MEDS: iohexol 300 mg/mL 100 mL Btl IV (21:33)
[2020-04-15 21:34] LABS: Alanine Aminotransferase 27 U/L (0-33); Albumin Level 4.5 g/dL (3.5-5.2); Alkaline Phosphatase 57 IU/L (35-105); Anion Gap 15.6 (5-19); Aspartate Amino Transferase 22 U/L (0-32); Blood Urea Nitrogen 11 mg/dL (6-20); Calcium 9.4 mg/dL (8.5-10.5); Carbon Dioxide 23 mmol/L (22-29); Chloride 103 mmol/L (98-107); Creatine Phosphokinase 148 U/L (26-192); Globulin 2.8 g/dL (1.3-4.6); Glomerular Filtration Rate 111.9 mL/min (90-130); Glucose 113 mg/dL (65-115); Magnesium 2.2 mg/dL (1.7-2.3); Osmolality Calculated 283 mOsm/kg (285-295); Potassium 3.6 mmol/L (3.5-5.1); Sodium 138 mmol/L (136-145); Total Bilirubin 0.9 mg/dL (0.15-1.2); Total Protein 7.3 g/dL (6.6-8.7)
[2020-04-15] MEDS: LORazepam 1 mg Tablet PO (21:43)
[2020-04-15 21:45] LABS: Alcohol Level < 10 mg/dL (0-10); HCG, Serum Qual Negative (Negative)
[2020-04-15] MEDS: ipratropium-albuterol 3 mL Neb INHALATION (22:03)
[2020-04-15 22:04] VITALS: PULSE 88; RESP 16; O2SAT 94
[2020-04-15 22:07] VITALS: PULSE 89
[2020-04-15 22:07] LABS: C Reactive Protein 21.7 mg/L (0.0-4.9)
[2020-04-15 22:32] VITALS: BP 100/77; PULSE 78; RESP 18; O2SAT 100
--- NOTE | 2020-04-15 22:35 | MRR_ITS ---
PROCEDURE INFORMATION: Exam: MR Lumbar Spine Without Contrast. Exam date and time: 04/15/2020 10:38 PM Age: 40 years old Clinical indication: Low back pain; Prior surgery; Surgery date: 6+ months; Additional info: Back pain/leg numbness TECHNIQUE: Imaging protocol: Multiplanar magnetic resonance images of the lumbar spine without intravenous contrast. COMPARISON: MRI Lumbar Spine w/o [id number] 05/16/2019 9:58 PM FINDINGS: Vertebrae: There is a unchanged postoperative fusion L1 and at L3. No subluxation. No bony edema. No acute fracture. No discitis or osteomyelitis. Spinal cord: Normal signal. No cord compression. L1-L2: No significant disc disease. No significant spinal canal stenosis. No neural foraminal stenosis. L2-L3: No significant disc disease. No significant spinal canal stenosis. No neural foraminal stenosis. L3-L4: No significant disc disease. No significant spinal canal stenosis. No neural foraminal stenosis. L4-L5: No significant disc disease. No significant spinal canal stenosis. No neural foraminal stenosis. L5-S1: No significant disc disease. No significant spinal canal stenosis. No neural foraminal stenosis. Sacrum/coccyx: There is a transitional lumbosacral junction with partial sacralization of 1st lumbar segment. Kidneys and ureters: Subcentimeter fluid signal intensity renal cysts are noted. Soft tissues: Unremarkable. Other findings: No spinal stenosis or foraminal narrowing. MR/MR lumbar spine wo con* [id number] IMPRESSION: 1. Stable postoperative spine. No acute abnormality. 2. No acute fracture.
--- NOTE | 2020-04-15 22:35 | MRR_ITS ---
PROCEDURE INFORMATION: Exam: MR Thoracic Spine Without Contrast Exam date and time: 04/15/2020 11:51 PM Age: 40 years old Clinical indication: Pain in thoracic spine; Other: Numbness; Additional info: Back pain/leg numbness TECHNIQUE: Imaging protocol: Multiplanar magnetic resonance images of the thoracic spine without contrast. COMPARISON: MRI Thoracic Spine w/o* [id number] 05/16/2019 9:58 PM FINDINGS: Vertebrae: There is unchanged mild height loss of the superior endplate of T3 and T7. There are postoperative changes in the lumbar spine. No acute fracture. No subluxation. Spinal cord: Normal signal. No cord compression. Discs/Spinal canal/Neural foramina: Unchanged broad-based disc bulge at C5-C6 with mild narrowing of the central canal is noted. No new disc bulge, protrusion or stenosis. Thyroid: There is a 4.2 cm hyperintense lesion/cyst left thyroid lobe that is increased since the prior exam where it measured 3.4 cm. Soft tissues: Unremarkable. MR/MR thoracic spin wo con* [id number] IMPRESSION: 1. No acute abnormality. Unchanged disc bulge at C5-C6. No new disc bulge or protrusion. 2. Slightly larger fluid signal intensity probable cyst left thyroid lobe. Follow-up elective ultrasound of the thyroid gland is recommended for confirmation. COMMENTS: Consistent with the [employer]'s Incidental Findings Committee white paper (J Am Violeta Radiol 2015): In patients aged 35 years and older with an incidental thyroid nodule equal to or greater than 1.[address], MRI or extrathyroidal US, further evaluation with dedicated thyroid US is recommended for patients with normal life expectancy and without comorbidities. For smaller nodules without suspicious features, no further evaluation or follow up is recommended.
[2020-04-15 22:53] LABS: Bilirubin Urine Neg (NEGATIVE); Blood Urine Trace (Negative); Glucose Urine UA Norm (Normal); Ketones Urine Negative (Negative); Leukocyte Esterase Urine Negative (Negative); Nitrate Urine Positive (Negative); Protein Urine Neg (Negative); Specific Gravity, Urine 1.015 (1.005-1.030); Urine Appearance SL Hazy (CLEAR); Urine Color Yellow (Yellow); Urobilinogen Urine Norm (Negative); pH Urine 6 (5-7)
[2020-04-15 22:57] VITALS: RESP 18; O2SAT 99
[2020-04-15] MEDS: morphine 4 mg/mL SDV 1 mL IVP (22:57)
[2020-04-15 23:00] LABS: Add Urine Culture? Yes; Bacteria Urine 4+; RBC Urine 0-4 /hpf (0-2); Squamous Epithelial Cell Urine 0-4 (0-5); WBC Urine 15-25 /hpf (0-5)
[2020-04-15 23:00] LABS: Erythrocyte Sedimentation Rate 14 mm/hr (0-15)
[2020-04-15 23:02] LABS: Amphetamines Screen Urine Positive (Negative); Barbiturates Screen Urine Negative (Negative); Benzodiazepines Screen Urine Negative (Negative); Cocaine Screen Urine Negative (Negative); Opiate Screen Urine Negative (Negative); PCP Screen Urine Negative (Negative); THC Screen Urine Negative (Negative)
[2020-04-15] MEDS: sodium chloride 0.9% 1,000 ML 100 ML IV (23:16)
[2020-04-16] VITALS (7 sets, daily range): BP systolic 82–108; BP diastolic 50–71; PULSE 68–85; RESP 18–24; TEMP 36.6–36.9; O2SAT 93–96
[2020-04-16] MEDS: cefTRIAXone 1,000 MG in sodium chloride 0.9% (plus) 50 ML 100 MG IV (00:57)
[2020-04-16] MEDS: acetaminophen 325 mg Tablet 650 MG PO ×2 (08:24→16:45)
[2020-04-16] MEDS: sodium chloride 0.9% 1,000 ML 100 ML IV ×2 (08:24→16:45)
[2020-04-16] MEDS: nicotine 21 mg Patch 1 PATCH TRANSDERMA (08:27)
--- NOTE | 2020-04-16 10:25 | PC.RESP ---
SMOKING CESSATION INFORMATION SENT TO PATIENT.
--- NOTE | 2020-04-16 11:31 | PC.CHAP ---
Pastoral Care Encounter/Spiritual Assessment Type of Contact [] Declined medical csr visit [] Patient/Family/Request visit [] Outpatient visit [] Follow-up visit [] Physician referral [] Code/Alert [x] Routine visit [] Staff referral [] Actively dying [] Patient sleeping [] Family support [] [] Out of room [] Palliative care [] [x] Receiving care in room [] Pre-surgical visit [] Trauma [] Long length of stay [] ICU visit [] Other: Relational/Emotional Strength [x] Patient feels connected with others/family/visitors/staff [] Distress [] Loneliness/isolation [] Abandonment Spirituality of Patient [x] Person of Mariam [] Attends Restorationist of their Mariam [x] Believes in Prayer [] Reads Bible or Lutheran materials [] There are Spiritual issues to be addressed Salvager Interventions [x] Prayer [x] Active listening [x] Non-anxious presence [x] Spiritual/emotional support [] Crisis/trauma care [x] Spiritual counseling [] Bereavement support [] Provided bereavement packet [] Provided Bible/devotional materials [] Provided toy/stuffed animal, coloring book to patient or family member [] Provided Communion [] Anointing/[place] [] Salvation [x] Completed spiritual assessment [] Other: Impact on Illness or Injury [] Angry [] Fearful [x] Anxious [] Often cries [] Exhaustion [] Unable to work [] Unable to attend sikhism [] Unable to walk/stand [] Unable to read [] Unable to drive [] Unable to eat/drink [] Unable to sleep [] Unable to be with family [] Patient intubated [] Other: Summary BACK/HIP PAIN, Sleepy had prayer, had a good attitude Time spent with patient 10 mins
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
[2020-04-16] MEDS: hyDROXYzine 25 mg Capsule 50 MG PO (16:45)
[2020-04-17 04:00] VITALS: BP 104/73; PULSE 72; RESP 16; TEMP 36.6; O2SAT 93
[2020-04-17 07:20] VITALS: BP 100/65; PULSE 71; RESP 18; TEMP 36.7; O2SAT 95
[2020-04-17] MEDS: acetaminophen 325 mg Tablet 650 MG PO ×2 (08:41→12:14)
[2020-04-17] MEDS: quetiapine 25 mg Tablet 50 MG PO (08:41)
--- NOTE | 2020-04-17 08:45 | PC.CHAP ---
Pastoral Care Encounter/Spiritual Assessment Type of Contact [] Declined glue jointer operator visit [] Patient/Family/Request visit [] Outpatient visit [] Follow-up visit [] Physician referral [] Code/Alert [x] Routine visit [] Staff referral [] Actively dying [] Patient sleeping [] Family support [] [] Out of room [] Palliative care [] [] Receiving care in room [] Pre-surgical visit [] Trauma [] Long length of stay [] ICU visit [] Other: Relational/Emotional Strength [] Patient feels connected with others/family/visitors/staff [] Distress [] Loneliness/isolation [] Abandonment Spirituality of Patient [] Person of Mariam [] Attends Advent of their Mariam [] Believes in Prayer [] Reads Bible or Scientology materials [] There are Spiritual issues to be addressed Advertisement Compositor Interventions [x] Prayer [] Active listening [] Non-anxious presence [] Spiritual/emotional support [] Crisis/trauma care [] Spiritual counseling [] Bereavement support [] Provided bereavement packet [] Provided Bible/devotional materials [] Provided toy/stuffed animal, coloring book to patient or family member [] Provided Communion [] Anointing/[place] [] Salvation [x] Completed spiritual assessment [] Other: Impact on Illness or Injury [] Angry [] Fearful [] Anxious [] Often cries [] Exhaustion [] Unable to work [] Unable to attend yazdanism [] Unable to walk/stand [] Unable to read [] Unable to drive [] Unable to eat/drink [] Unable to sleep [] Unable to be with family [] Patient intubated [] Other: Summary Patient resting well. Time spent with patient 10 min
[2020-04-17] MEDS: nicotine 21 mg Patch 1 PATCH TRANSDERMA (09:38)
[2020-04-17] MEDS: paliperidone ER 6 mg Tablet PO (09:38)
[2020-04-17 11:04] VITALS: BP 111/75; PULSE 84; RESP 18; O2SAT 98
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
[2020-04-17 16:37] VITALS: BP 111/75; PULSE 84; RESP 18; O2SAT 98
== END 2020-04-17 14:00 | disposition home or self-care (01) | DRG 880 ==
LOC: ER 21:52 → MEDSURG 04-16 02:31
PROVIDERS: Emergency Medicine; Admitting Provider Internal Medicine; PCP Nurse Practitioner Family; Visit Provider Psychiatry & Neurology Psychiatry
DX: F44.4 Conversion disorder with motor symptom or deficit (principal); F31.9 Bipolar disorder, unspecified; F43.12 Post-traumatic stress disorder, chronic; M54.9 Dorsalgia, unspecified; Z81.8 Family history of other mental and behavioral disorders; M79.7 Fibromyalgia; F17.210 Nicotine dependence, cigarettes, uncomplicated; F60.3 Borderline personality disorder; F15.10 Other stimulant abuse, uncomplicated
CPT/HCPCS: 12345; 36415; 72131; 72146; 72148; 74177; 80053; 80306; 80307; 81001; 82550; 83735; 84703; 85025; 85651; 86140; 87077; 87086; 87186; 94640; 96375; 99283; G0378; J0131; J0696; J2270; J7030; Q9967

== ENCOUNTER 2020-04-29 21:01 | Emergency (ER) | payer MEDICAID, SELFPAY ==
[2020-04-29 21:04] VITALS: BP 109/80; PULSE 84; RESP 14; TEMP 36.6; O2SAT 94; BMI 31.3
[2020-04-29] MEDS: lidocaine 2% viscous 15 ML, aluminum-mag hydrox-simethicon 30 ML, sucralfate oral liq 1 GM PO (21:36)
[2020-04-29] MEDS: sodium chloride 0.9% 1,000 ML 100 ML IV (21:36)
[2020-04-29] MEDS: ondansetron 2 mg/ML SDV 2 mL 4 MG IVP (21:41)
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
[2020-04-29 21:43] VITALS: BP 105/71; PULSE 92; RESP 16; O2SAT 97
[2020-04-29 21:53] LABS: Basophils % 0.2 %; Eosinophils # 0.1 10^3/uL (0.0-0.8); Eosinophils % 1.6 %; Hematocrit 43.1 % (37.0-47.0); Lymphocytes # 1.7 10^3/uL (0.8-4.8); Lymphocytes % 30.7 %; Mean Corpuscular HGB Conc 32.5 g/dL (30.0-36.0); Mean Corpuscular Hemoglobin 30.2 pg (28.0-34.0); Mean Corpuscular Volume 92.9 fL (81-99); Mean Platelet Volume 10.6 fL (7.4-10.4); Monocytes # 0.5 10^3/uL (0.2-0.9); Monocytes % 8.5 %; Neutrophils # 3.3 10^3/uL (1.8-7.7); Neutrophils % 58.8 %; Nucleated Red Blood Cells % 0 %; Platelet Count 245 10^3/cmm (130-400); Red Blood Count 4.64 10^6/uL (4.1-5.3); Red Cell Distribution Width 13.3 % (12.1-15.1); White Blood Count 5.6 10^3/uL (4.0-10.0)
[2020-04-29] MEDS: morphine 4 mg/mL SDV 1 mL IVP (22:09)
[2020-04-29 22:13] LABS: Alanine Aminotransferase 26 U/L (0-33); Albumin Level 4.2 g/dL (3.5-5.2); Alkaline Phosphatase 61 IU/L (35-105); Anion Gap 14.1 (5-19); Aspartate Amino Transferase 19 U/L (0-32); Blood Urea Nitrogen 10 mg/dL (6-20); Calcium 9.4 mg/dL (8.5-10.5); Carbon Dioxide 27 mmol/L (22-29); Chloride 101 mmol/L (98-107); Globulin 2.5 g/dL (1.3-4.6); Glomerular Filtration Rate 62.1 mL/min (90-130); Glucose 104 mg/dL (65-115); Lipase 24 U/L (13-60); Osmolality Calculated 282 mOsm/kg (285-295); Potassium 4.1 mmol/L (3.5-5.1); Sodium 138 mmol/L (136-145); Total Bilirubin 0.2 mg/dL (0.15-1.2); Total Protein 6.7 g/dL (6.6-8.7)
[2020-04-29 22:32] LABS: Alcohol Level < 10 mg/dL (0-10); H. Pylori IgG Antibody Negative (Negative); HCG, Serum Qual Negative (Negative)
[2020-04-29 22:47] LABS: Add Urine Culture? Yes; Bacteria Urine 2+; Bilirubin Urine Neg (NEGATIVE); Blood Urine Neg (Negative); Glucose Urine UA Norm (Normal); Ketones Urine Negative (Negative); Leukocyte Esterase Urine Negative (Negative); Nitrate Urine Positive (Negative); Protein Urine Neg (Negative); RBC Urine 0-4 /hpf (0-2); Squamous Epithelial Cell Urine 0-4 (0-5); Urine Appearance Hazy (CLEAR); Urine Color Yellow (Yellow); Urobilinogen Urine Norm (Negative); WBC Urine 0-4 /hpf (0-5); pH Urine 7 (5-7)
--- NOTE | 2020-04-29 22:50 | USR_ITS ---
PROCEDURE INFORMATION: Exam: US Abdomen Limited, Right Upper Quadrant Exam date and time: 04/29/2020 11:12 PM Age: 40 years old Clinical indication: Abdominal pain TECHNIQUE: Imaging protocol: Real-time ultrasound of the abdomen with image documentation. Examination was focused on the right upper quadrant. COMPARISON: CT abdomen pelvis w con* [id number] 04/15/2020 9:24 PM FINDINGS: Liver: The liver measures 15.8 cm and is increased in echogenicity. Gallbladder: The gallbladder is partially decompressed with a wall thickness of 2.3 mm. No gallstones visualized. Common bile duct: Common bile duct 3.4 mm. Pancreas: Visualized pancreas is unremarkable. Right kidney: Normal. No mass. No hydronephrosis. Intraperitoneal space: No ascites. US/US gall bladder [id number] IMPRESSION: 1. Normal gallbladder. 2. Fatty infiltration of the liver.
[2020-04-29] MEDS: haloperidol inj 5 mg/mL INJ 1 mL IM (23:36)
[2020-04-29 23:58] VITALS: BP 114/72; PULSE 84; RESP 16; O2SAT 98
== END 2020-04-30 | disposition home or self-care (01) ==
PROVIDERS: Emergency Provider Emergency Medicine; PCP Nurse Practitioner Family
DX: N39.0 Urinary tract infection, site not specified (principal); F17.210 Nicotine dependence, cigarettes, uncomplicated
CPT/HCPCS: 12345; 36415; 76705; 80053; 80307; 81001; 83690; 84703; 85025; 86677; 87077; 87086; 87186; 96361; 96372; 96374; 96375; 99282; 99283; J1630; J2270; J2405; J7030

== ENCOUNTER 2020-05-03 16:16 | Emergency (ER) | payer MEDICAID, SELFPAY ==
[2020-05-03 16:25] VITALS: BP 120/73; PULSE 89; RESP 18; TEMP 36.7; O2SAT 95; BMI 31.3
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
[2020-05-03] MEDS: HYDROcodone-acetaminophen 7.5-325 mg Tablet 1 TAB PO (17:10)
[2020-05-03] MEDS: ondansetron 4 MG Tablet PO (17:11)
[2020-05-03 17:16] LABS: Basophils % 0.1 %; Eosinophils % 0.4 %; Hematocrit 44.3 % (37.0-47.0); Hemoglobin 14.5 g/dL (11.5-15.3); Lymphocytes # 1.7 10^3/uL (0.8-4.8); Lymphocytes % 23.8 %; Mean Corpuscular HGB Conc 32.7 g/dL (30.0-36.0); Mean Corpuscular Volume 91.7 fL (81-99); Mean Platelet Volume 10.2 fL (7.4-10.4); Monocytes # 0.4 10^3/uL (0.2-0.9); Monocytes % 5.4 %; Neutrophils # 5.1 10^3/uL (1.8-7.7); Nucleated Red Blood Cells % 0 %; Platelet Count 261 10^3/cmm (130-400); Red Blood Count 4.83 10^6/uL (4.1-5.3); Red Cell Distribution Width 13.2 % (12.1-15.1); White Blood Count 7.2 10^3/uL (4.0-10.0)
[2020-05-03 17:33] LABS: Add Urine Microscopic? NO
[2020-05-03 17:34] LABS: Alanine Aminotransferase 37 U/L (0-33); Albumin Level 4.3 g/dL (3.5-5.2); Alkaline Phosphatase 60 IU/L (35-105); Anion Gap 17.9 (5-19); Aspartate Amino Transferase 23 U/L (0-32); Blood Urea Nitrogen 8 mg/dL (6-20); Calcium 9.5 mg/dL (8.5-10.5); Carbon Dioxide 22 mmol/L (22-29); Chloride 103 mmol/L (98-107); Globulin 3.2 g/dL (1.3-4.6); Glomerular Filtration Rate 111.9 mL/min (90-130); Glucose 107 mg/dL (65-115); Lipase 24 U/L (13-60); Osmolality Calculated 284 mOsm/kg (285-295); Potassium 3.9 mmol/L (3.5-5.1); Sodium 139 mmol/L (136-145); Total Bilirubin 0.3 mg/dL (0.15-1.2); Total Protein 7.5 g/dL (6.6-8.7)
[2020-05-03 17:44] LABS: Bilirubin Urine Neg (NEGATIVE); Blood Urine Neg (Negative); Glucose Urine UA Norm (Normal); Ketones Urine Negative (Negative); Leukocyte Esterase Urine Negative (Negative); Nitrate Urine Negative (Negative); Protein Urine Neg (Negative); Urine Appearance Clear (CLEAR); Urine Color Yellow (Yellow); Urobilinogen Urine Norm (Negative); pH Urine 7 (5-7)
[2020-05-03 17:45] LABS: Amphetamines Screen Urine Negative (Negative); Barbiturates Screen Urine Negative (Negative); Benzodiazepines Screen Urine Negative (Negative); Cocaine Screen Urine Negative (Negative); Opiate Screen Urine Positive (Negative); PCP Screen Urine Negative (Negative); THC Screen Urine Negative (Negative)
[2020-05-03 17:49] LABS: HCG, Serum Qual Negative (Negative)
== END 2020-05-03 19:07 | disposition left against medical advice (07) ==
PROVIDERS: Nurse Practitioner Family; Emergency Provider Physician Assistant; PCP Nurse Practitioner Family
DX: R10.9 Unspecified abdominal pain (principal); Z53.21 Procedure and treatment not carried out due to patient leaving prior to being seen by health care provider; F17.210 Nicotine dependence, cigarettes, uncomplicated
CPT/HCPCS: 12345; 36415; 80053; 80306; 81003; 83690; 84703; 85025; 99282; 99283; Q0162

== ENCOUNTER 2020-05-13 09:20 | Outpatient (CLI) | payer MEDICAID, SELFPAY ==
--- NOTE | 2020-05-13 10:00 | NM_ITS ---
WS: [id number] NUCLEAR MEDICINE HIDA SCAN CLINICAL INFORMATION: ABDOMINAL PAIN TECHNIQUE: Following intravenous administration of 7.8 mCi of technetium 99m mebrofenin, images of th e abdomen were obtained over the course of 60 minutes. Next, gallbladder ejection fraction was determ ined by obtaining preprandial and one-hour postprandial images of the gallbladder following oral asrtid stion of Ensure. *PATIENT LEFT AMA AFTER DRINKING ENSURE. THEREFORE EJECTION FRACTION WAS NOT CALCULATED. COMPARISON: None. FINDINGS: Normal radiotracer uptake at 5 minutes. Gallbladder is visualized by 15 minutes. Normal common bile d uct. Small bowel is faintly visualized. No evidence of acute cholecystitis or choledocholithiasis. NM/NM hepatobiliary wo phar [id number] IMPRESSION: 1. No evidence of acute cholecystitis or choledocholithiasis. 2. Ejection fraction not calculated. See above.
== END 2020-05-13 09:21 | disposition home or self-care (01) ==
PROVIDERS: PCP Nurse Practitioner Family; Visit Provider Surgery
DX: R10.9 Unspecified abdominal pain (principal)
CPT/HCPCS: 78226; A9537

== ENCOUNTER → 2020-05-15 15:24 | Outpatient (BNVA) | payer MEDICAID, SELFPAY | PROVIDERS: PCP Nurse Practitioner Family; Visit Provider Nurse Practitioner Family | DX: N89.8 Other specified noninflammatory disorders of vagina (principal); R60.9 Edema, unspecified; K76.0 Fatty (change of) liver, not elsewhere classified; Z68.31 Body mass index [BMI] 31.0-31.9, adult; F17.210 Nicotine dependence, cigarettes, uncomplicated | CPT/HCPCS: 80053; 81000; 84450; 85025; 86803; 87070; 87086; 87491; 87591; 87661 ==

== ENCOUNTER 2020-05-23 11:37 | Emergency (ER) | payer MEDICAID, SELFPAY ==
[2020-05-23] VITALS (7 sets, daily range): BP systolic 95–108; BP diastolic 68–70; PULSE 70–81; RESP 16–18; TEMP 36.9; O2SAT 92–95; BMI 31.8
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
[2020-05-23 15:02] LABS: Basophils # 0.1 10^3/uL (0.0-0.1); Basophils % 0.6 %; Eosinophils # 1.8 10^3/uL (0.0-0.8); Eosinophils % 21.9 %; Hematocrit 50.1 % (37.0-47.0); Hemoglobin 16.5 g/dL (11.5-15.3); Lymphocytes # 1.7 10^3/uL (0.8-4.8); Lymphocytes % 20.5 %; Mean Corpuscular HGB Conc 32.9 g/dL (30.0-36.0); Mean Corpuscular Hemoglobin 29.9 pg (28.0-34.0); Mean Corpuscular Volume 90.8 fL (81-99); Mean Platelet Volume 10.9 fL (7.4-10.4); Monocytes # 0.5 10^3/uL (0.2-0.9); Monocytes % 5.5 %; Neutrophils # 4.22 10^3/uL (1.8-7.7); Neutrophils % 51.3 %; Nucleated Red Blood Cells % 0 %; Platelet Count 244 10^3/cmm (130-400); Red Blood Count 5.52 10^6/uL (4.1-5.3); Red Cell Distribution Width 12.8 % (12.1-15.1); White Blood Count 8.2 10^3/uL (4.0-10.0)
[2020-05-23] MEDS: sodium chloride 0.9% 1,000 ML 999 ML IV (15:06)
[2020-05-23] MEDS: ondansetron 2 mg/ML SDV 2 mL 4 MG IVP ×2 (15:06→17:14)
[2020-05-23] MEDS: morphine 4 mg/mL SDV 1 mL IVP ×2 (15:06→17:13)
[2020-05-23 15:17] LABS: Alanine Aminotransferase 18 U/L (0-33); Albumin Level 4.6 g/dL (3.5-5.2); Alkaline Phosphatase 78 IU/L (35-105); Blood Urea Nitrogen 10 mg/dL (6-20); Calcium 9.8 mg/dL (8.5-10.5); Carbon Dioxide 25 mmol/L (22-29); Chloride 97 mmol/L (98-107); Glomerular Filtration Rate 111.9 mL/min (90-130); Glucose 94 mg/dL (65-115); Lipase 22 U/L (13-60); Osmolality Calculated 274 mOsm/kg (285-295); Sodium 134 mmol/L (136-145); Total Bilirubin 0.5 mg/dL (0.15-1.2); Total Protein 7.6 g/dL (6.6-8.7)
[2020-05-23 15:54] LABS: Anion Gap 16.1 (5-19); Aspartate Amino Transferase 23 U/L (0-32); Potassium 4.1 mmol/L (3.5-5.1)
[2020-05-23 16:34] LABS: HCG Qualitative Urine. Negative (Negative)
[2020-05-23 16:43] LABS: Add Urine Microscopic? YES; Bilirubin Urine Neg (NEGATIVE); Blood Urine Neg (Negative); Glucose Urine UA Norm (Normal); Ketones Urine Negative (Negative); Leukocyte Esterase Urine Negative (Negative); Nitrate Urine Positive (Negative); Protein Urine Neg (Negative); Urine Appearance Hazy (CLEAR); Urine Color Yellow (Yellow); Urobilinogen Urine Norm (Negative); pH Urine 6 (5-7)
[2020-05-23 16:52] LABS: RBC Urine 0-4 /hpf (0-2); WBC Urine 0-4 /hpf (0-5)
[2020-05-23 16:53] LABS: Add Urine Culture? No; Bacteria Urine 4+
--- NOTE | 2020-05-24 13:04 | DCPLANNER ---
manager medical device had message to schedule an outpatient hida scan for patient. manager medical device got order signed, and faxed order to centralized scheduling. manager medical device will call for appointment information.
--- NOTE | 2020-05-31 09:56 | DCPLANNER ---
Patient has a hida scan scheduled for , June 04, 2020 at 10:00. Centralized scheduling will call patient with appointment information.
--- NOTE | 2020-07-04 12:45 | DCPLANNER ---
Patient had an appointment scheduled for 06.13.20 for a hida scan - patient did attend appointment.
== END 2020-05-23 17:57 | disposition home or self-care (01) ==
PROVIDERS: Emergency Provider Family Medicine; PCP Nurse Practitioner Family
DX: K82.8 Other specified diseases of gallbladder (principal); F17.210 Nicotine dependence, cigarettes, uncomplicated
CPT/HCPCS: 12345; 80053; 81001; 81003; 81025; 83690; 85025; 96374; 96375; 99283; J2270; J2405; J7030

== ENCOUNTER 2020-06-13 09:35 | Outpatient (CLI) | payer MEDICAID, SELFPAY ==
--- NOTE | 2020-06-13 09:39 | NM_ITS ---
WS: [id number] NUCLEAR MEDICINE HIDA SCAN CLINICAL INFORMATION: BILIARY COLIC TECHNIQUE: Following intravenous administration of 8.0 mCi of technetium 99m mebrofenin, images of th e abdomen were obtained over the course of 60 minutes. Next, gallbladder ejection fraction was determ ined by obtaining preprandial and one-hour postprandial images of the gallbladder following oral astrid stion of Ensure. COMPARISON: Comparison May 13, 2020 FINDINGS: Normal hepatic uptake at 5 minutes. Gallbladder is visualized by 20 minutes. Normal common bile duct. Small bowel is visualized. No evidence of acute cholecystitis or choledocholithiasis. Normal hepatic excretion. Gallbladder ejection fraction 80% within normal limits. No evidence of chronic cholecystitis. NM/NM hepatobiliary w phar* [id number] IMPRESSION: 1. No evidence of acute or chronic cholecystitis. 2. Gallbladder ejection fraction 80% within normal limits.
== END 2020-06-13 09:36 | disposition home or self-care (01) ==
LOC: NM 09:37
PROVIDERS: PCP Nurse Practitioner Family; Visit Provider Emergency Medicine
DX: K80.50 Calculus of bile duct without cholangitis or cholecystitis without obstruction (principal)
CPT/HCPCS: 78227; A9537

== ENCOUNTER → 2020-07-05 10:51 | Outpatient (BNVA) | payer MEDICAID, SELFPAY | PROVIDERS: PCP Nurse Practitioner Family; Visit Provider Internal Medicine | DX: R10.11 Right upper quadrant pain (principal); Z20.828 Contact with and (suspected) exposure to other viral communicable diseases | CPT/HCPCS: 87635 ==

== ENCOUNTER 2020-07-08 06:17 | Day surgery (SDC) | payer MEDICAID, SELFPAY ==
[2020-07-05 13:15] VITALS: BMI 30.4
[2020-07-08] VITALS (13 sets, daily range): BP systolic 90–118; BP diastolic 57–75; PULSE 63–85; RESP 10–20; TEMP 36.1–36.9; O2SAT 94–100
[2020-07-08] MEDS: heparin 5,000 unit/mL INJ 1 mL 2000 UNIT SUBCUT (06:59)
[2020-07-08] MEDS: sodium chloride 0.9% 1,000 ML 30 ML IV (07:00)
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
--- NOTE | 2020-07-08 07:39 | W.PM.OPSUD ---
Surgery/Procedure H&P Update DATE OF PROCEDURE: July 08, 2020 DATE H&P PERFORMED: 07/01/20 H&P UPDATE INFORMATION: I have reviewed H&P completed within last 30 days, I have examined patient prior to procedure and No changes to prior documentation PREOP DIAGNOSIS: Biliary colic PRIMARY INDICATION FOR PROCEDURE: The same PLANNED PROCEDURE: Operation Date: 07/08/20 08:00 Proposed Procedures p Laparoscopic Cholecystectomy 13791 R10.11(Not Applicable) - Jose Luis Molina MD
[2020-07-08] MEDS: lidocaine 2% INJ 20 mL INJECTION (08:08)
--- NOTE | 2020-07-08 08:46 | P.OP_ITS ---
Operative Report Date of procedure: July 08, 2020 Pre-op Diagnosis: Biliary colic Post-op diagnosis: other (Chronic cholecystitis and fatty liver) Procedure Done: Laparoscopic cholecystectomy and laparoscopic liver biopsy Specimens removed/disposition: 1. Gallbladder and contents. 2. Liver biopsy to assess stage of fatty liver Surgeon: Jose Luis Molina Surfacer Operator: Surgical fazal Smith Circulating nurse Bridgett Anesthesia: General (buoy tender is Petra and Odin) Estimated blood loss (mL): 10 Condition: stable Disposition: same day Brief History: This is a pleasant 40 years old female patient presented with symptoms of gallbladder disease in the form of biliary colic. Plan of care; After thorough history physical examination and reviewing the chart ,I counseled the patient for laparoscopic cholecystectomy possible open, indications risks including but not limited injury to the common bile duct and other viscera.benefits and alternatives all discussed with the patient, and she did agree to proceed. All questions have been answered and all concerns have been addressed to patient's satisfaction. Rationale was carefully and clearly discussed with the patient.Appropriate informed consent have been reviewed and signed. Procedure: Patient was identified in the holding area and taken back to the operative suite, placed in supine position intubated by anesthesia . Time-out was done verifying the patient's name/date of /planned procedure and destination after the procedure, all were in agreement. SCDs confirmed to be functioning, preoperative antibiotics administered per protocol, and beta cheryl protocol was confirmed. Patient was appropriately secured to the table, footboard was applied to the OR table, before prep and drape anesthesia was asked to tilt the table back and forth to make sure that the patient is appropriately secured and she was. Prep and drape of the abdomen was done under the usual sterile technique, followed by that supraumbilical skin incision,skin incision was done by a 15 blade knife, and stay sutures were applied to the fascia and Case trocar technique was used to enter the abdominal without injuring any abdominal viscera, started by low flow gas insufflation followed by a high flow, started with a 10 mm laparoscope and under direct vision there was no evidence of any injuries, the scope then switched to a 30? ,10 millimeter scope and under direct visualization 5 millimeter trocar was inserted in the epigastric region followed by two 5 mm trocars were inserted in the right upper quadrant that was done after injection of local lidocaine 2% at all incision sites. Gallbladder showed chronic cholecystitis and associated fatty liver causing Hepa tomegally. Patient was then positioned in the head up and tilted to the left Ratcheted forceps were introduced into the lateral most 5mm port and was applied unto the fundus of the gallbladder cephalad and using Bullet forceps the infundibulum of the gallbladder was retracted laterally. Using [place] forceps then L-hook cautery to dissect the peritoneum overlying the Calot's triangle whihc was then opened medially and laterally until the cystic duct and the cystic artery were skeletonized. Dissection was carried along the body of the gallbladder and after ensuring critical view of safety was identfied. Cystic duct and cystic artery where seen connected to the gallbladder. Clips were applied on the cystic duct towards the common bile duct 1 towards the gallbladder then divided is in sharp scissors, 2 clips were then applied onto the cystic artery and 1 towards the gallbladder and divided by sharp scissors. Additional traversing vessel was clipped at the bed of the gallbladder Dissection was then carried along of the gallbladder from the gallbladder fossa using cautery as well as sharp dissection with heat energy.The gallbladder then was dissected out from the gallbladder fossa totally , cholecystectomy was then achieved and was placed in an Endo Catch bag and then retrieved from the Case trocar site under direct visualization using a 5 mm 30? scope through the epigastric trocar, specimen was then passed to the circulating nurse to go for permanent pathology,irrigation and hemostasis was done to the gallbladder fossa after hemostasis was secured, final survey laparoscopy was done that showed no injuries.Suction irrigation was obtained. I elected to obtain a laparoscopic liver biopsy to stage the fatty liver. The supraumbilical fascial defect was then closed using interrupted Vicryl sutures using a fascial closure device ;Jorge Faustin under direct visualization Gas was allowed to deflate,Trocars were then taken out under direct vision there was no evidence of bleeding Specimen was passed to the circulating nurse for permanent pathology. No drains were placed and the supraumbilical incision as well as all trocar sites were closed by by 4-0 Monocryl to approximate the skin edges of the supraumbilical incision, dressing was applied in the form of surgical glue and the patient patient got extubated and was taken to recovery area in a stable condition. Count of sponges, needles and instruments were completed at the end of the procedure I was present for the whole entire procedure.
[2020-07-08] MEDS: ondansetron 2 mg/ML SDV 2 mL 4 MG IVP (09:22)
[2020-07-08] MEDS: HYDROcodone-acetaminophen 5-325 mg Tablet 1 TAB PO (09:55)
[2020-07-08] MEDS: morphine 4 mg/mL SDV 1 mL IVP (10:47)
--- NOTE | 2020-07-08 11:10 | PC.NURSE ---
SPOKE WITH DR. LE. INSTRUCTED TO PLACE ICE TO PT ABDOMEN FOR DISCOMFORT. OK FOR PT TO BE DISCHARGED AT THIS TIME.
== END 2020-07-08 11:17 | disposition home or self-care (01) ==
PROVIDERS: PCP Nurse Practitioner Family; Visit Provider Surgery
PROC: 0FT44ZZ Resection of Gallbladder, Percutaneous Endoscopic Approach (ICD-10-PCS; CPT 47562; principal; 2020-07-08 08:00)
PROC: 0FB04ZX Excision of Liver, Percutaneous Endoscopic Approach, Diagnostic (ICD-10-PCS; CPT 47379; 2020-07-08 08:00)
DX: K81.1 Chronic cholecystitis (principal); K76.0 Fatty (change of) liver, not elsewhere classified; J45.909 Unspecified asthma, uncomplicated; K21.9 Gastro-esophageal reflux disease without esophagitis; F17.210 Nicotine dependence, cigarettes, uncomplicated
CPT/HCPCS: 47379; 47562; 12345; 88304; 88307; J0131; J0690; J1100; J1644; J1885; J2270; J2405; J2704; J2710; J3010; J3490; J7030

== ENCOUNTER → 2020-07-16 16:54 | Outpatient (BNVA) | payer MEDICAID, SELFPAY | PROVIDERS: PCP Nurse Practitioner Family; Visit Provider Nurse Practitioner Family | DX: E55.9 Vitamin D deficiency, unspecified (principal); R53.83 Other fatigue; R14.0 Abdominal distension (gaseous); F17.210 Nicotine dependence, cigarettes, uncomplicated | CPT/HCPCS: 80053; 82306; 82607; 84443; 85025 ==

== ENCOUNTER 2020-07-23 13:22 | Emergency (ER) | payer MEDICAID, SELFPAY ==
[2020-07-23 13:25] VITALS: BP 97/71; PULSE 86; RESP 17; TEMP 36.8; O2SAT 93; BMI 30.2
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
[2020-07-23 13:47] VITALS: BP 97/71; PULSE 84; PULSE 88; RESP 20; O2SAT 95
[2020-07-23 14:28] VITALS: RESP 18
[2020-07-23] MEDS: morphine 4 mg/mL SDV 1 mL IVP (14:28)
[2020-07-23] MEDS: ondansetron 2 mg/ML SDV 2 mL 4 MG IVP (14:29)
[2020-07-23 14:46] LABS: Basophils % 0.5 %; Eosinophils # 0.8 10^3/uL (0.0-0.8); Hematocrit 45.8 % (37.0-47.0); Hemoglobin 14.8 g/dL (11.5-15.3); Lymphocytes # 1.4 10^3/uL (0.8-4.8); Lymphocytes % 21.8 %; Mean Corpuscular HGB Conc 32.3 g/dL (30.0-36.0); Mean Corpuscular Hemoglobin 29.4 pg (28.0-34.0); Mean Corpuscular Volume 91.1 fL (81-99); Monocytes # 0.5 10^3/uL (0.2-0.9); Neutrophils # 3.59 10^3/uL (1.8-7.7); Neutrophils % 57.4 %; Nucleated Red Blood Cells % 0 %; Platelet Count 246 10^3/cmm (130-400); Red Blood Count 5.03 10^6/uL (4.1-5.3); White Blood Count 6.3 10^3/uL (4.0-10.0)
[2020-07-23 15:15] LABS: Alanine Aminotransferase 12 U/L (0-33); Albumin Level 3.9 g/dL (3.5-5.2); Alkaline Phosphatase 78 IU/L (35-105); Aspartate Amino Transferase 14 U/L (0-32); Blood Urea Nitrogen 12 mg/dL (6-20); Calcium 9.3 mg/dL (8.5-10.5); Carbon Dioxide 24 mmol/L (22-29); Chloride 101 mmol/L (98-107); Creatine Phosphokinase 28 U/L (26-192); Globulin 3.3 g/dL (1.3-4.6); Glomerular Filtration Rate 111.9 mL/min (90-130); Glucose 106 mg/dL (65-115); Osmolality Calculated 277 mOsm/kg (285-295); Sodium 135 mmol/L (136-145); Total Bilirubin 0.4 mg/dL (0.15-1.2); Total Protein 7.2 g/dL (6.6-8.7)
[2020-07-23 16:00] VITALS: BP 96/66; PULSE 73; RESP 18; O2SAT 96
[2020-07-23 16:38] VITALS: BP 98/57; PULSE 76; RESP 18; TEMP 37.2; O2SAT 96
== END 2020-07-23 16:42 | disposition home or self-care (01) ==
PROVIDERS: Emergency Provider Family Medicine; PCP Nurse Practitioner Family
DX: M47.816 Spondylosis without myelopathy or radiculopathy, lumbar region (principal); F15.10 Other stimulant abuse, uncomplicated; M79.604 Pain in right leg; F17.210 Nicotine dependence, cigarettes, uncomplicated
CPT/HCPCS: 12345; 36415; 73502; 80053; 82550; 85025; 96374; 96375; 97161; 99283; 99284; J2270; J2405

== ENCOUNTER 2020-08-30 20:52 | Inpatient (IN) | payer MEDICAID, SELFPAY ==
[2020-08-30 20:56] VITALS: BP 117/67; PULSE 88; RESP 18; TEMP 36.8; O2SAT 96; BMI 30.1
[2020-08-30 21:18] LABS: Basophils % 0.3 %; Eosinophils # 0.2 10^3/uL (0.0-0.8); Eosinophils % 1.7 %; Hematocrit 43.4 % (37.0-47.0); Hemoglobin 14.1 g/dL (11.5-15.3); Lymphocytes # 2.1 10^3/uL (0.8-4.8); Lymphocytes % 21.7 %; Mean Corpuscular HGB Conc 32.5 g/dL (30.0-36.0); Mean Corpuscular Hemoglobin 28.6 pg (28.0-34.0); Mean Platelet Volume 10.5 fL (7.4-10.4); Monocytes # 0.6 10^3/uL (0.2-0.9); Monocytes % 6.7 %; Neutrophils # 6.56 10^3/uL (1.8-7.7); Neutrophils % 68.9 %; Nucleated Red Blood Cells % 0 %; Platelet Count 304 10^3/cmm (130-400); Red Blood Count 4.93 10^6/uL (4.1-5.3); Red Cell Distribution Width 13.2 % (12.1-15.1); White Blood Count 9.5 10^3/uL (4.0-10.0)
[2020-08-30 21:51] LABS: Alanine Aminotransferase 12 U/L (0-33); Albumin Level 4.1 g/dL (3.5-5.2); Alkaline Phosphatase 79 IU/L (35-105); Anion Gap 13.5 (5-19); Aspartate Amino Transferase 10 U/L (0-32); Blood Urea Nitrogen 11 mg/dL (6-20); Calcium 9.3 mg/dL (8.5-10.5); Carbon Dioxide 26 mmol/L (22-29); Chloride 100 mmol/L (98-107); Glomerular Filtration Rate 111.9 mL/min (90-130); Glucose 115 mg/dL (65-115); Osmolality Calculated 282 mOsm/kg (285-295); Potassium 3.5 mmol/L (3.5-5.1); Sodium 136 mmol/L (136-145); Total Bilirubin 0.2 mg/dL (0.15-1.2); Total Protein 7.1 g/dL (6.6-8.7)
[2020-08-30 21:55] LABS: Acetaminophen < 5.0 ug/mL (10-30); Alcohol Level < 10 mg/dL (0-10); Salicylate < 0.3 mg/dL (3-10)
[2020-08-30 22:42] LABS: Glucose Urine UA Norm (Normal); Ketones Urine Negative (Negative); Protein Urine Neg (Negative); Urine Appearance SL Hazy (CLEAR); Urine Color Yellow (Yellow); pH Urine 6 (5-7)
[2020-08-30 22:43] LABS: Add Urine Microscopic? YES; Bilirubin Urine Neg (Negative); Blood Urine Neg (Negative); Leukocyte Esterase Urine 1+ (Negative); Nitrate Urine Positive (Negative); Urobilinogen Urine Norm (Negative)
[2020-08-30 22:47] LABS: Add Urine Culture? No; Bacteria Urine 4+ /hpf; Mucus Urine 1+ /hpf; RBC Urine 0-4 /hpf (0-2); Squamous Epithelial Cell Urine 15-25 /hpf (0-5); WBC Urine 25-40 /hpf (0-5)
[2020-08-30 22:50] LABS: Amphetamines Screen Urine Negative (Negative); Barbiturates Screen Urine Negative (Negative); Benzodiazepines Screen Urine Negative (Negative); Cocaine Screen Urine Negative (Negative); Opiate Screen Urine Negative (Negative); PCP Screen Urine Negative (Negative); THC Screen Urine Negative (Negative)
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
[2020-08-30 23:42] VITALS: BP 123/76; PULSE 78; RESP 16; O2SAT 99
[2020-08-30 23:49] VITALS: BP 105/71; PULSE 100; RESP 17; TEMP 36.4; O2SAT 92
[2020-08-31] VITALS (7 sets, daily range): BP systolic 112–117; BP diastolic 74–82; PULSE 79–91; RESP 16–20; TEMP 36.3–37.1; O2SAT 91–97
--- NOTE | 2020-08-31 00:53 | PC.NURSE ---
40-year-old lady with a history of psychosis and substance abuse presents with the same. Evidently she exhibited strange behavior, showing up at a relatives house naked. He states she is also been hearing voices. No visual hallucinations she said at some point, she was having some suicidal ideations. She says I would have done anything , stepped out in front of a car or something . She denies any of those thoughts now. She actually states she is feeling much better. She has a history of being on InVega, but she ran out. She states that she is currently taking Seroquel. She thinks the Invega really helped when she was on it. She admits to using Kratom and smoking amphetamine. DOA/BAL are both negative
[2020-08-31] MEDS: quetiapine 25 mg Tablet 50 MG PO ×3 (01:27→17:57)
[2020-08-31] MEDS: nicotine 2 mg Gum BUCCAL ×4 (08:29→15:51)
[2020-08-31] MEDS: hydroCHLOROthiazide 25 mg Tablet 12.5 MG PO (08:29)
[2020-08-31] MEDS: sulfamethoxazole-trimeth DS 160-800 mg Tablet 1 TAB PO ×2 (08:30→17:57)
[2020-08-31] MEDS: albuterol 8 gm MDI 2 PUFF INHALATION ×3 (09:48→20:29)
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
[2020-08-31] MEDS: LORazepam 1 mg Tablet PO (14:05)
[2020-08-31] MEDS: paliperidone ER 6 mg Tablet PO (14:05)
[2020-08-31] MEDS: paliperidone palmitate 234 mg Syringe IM (15:50)
[2020-08-31] MEDS: OLANZapine 5 mg ODT PO (16:31)
--- NOTE | 2020-08-31 16:32 | PC.NURSE ---
PRN [email or web address] Zydis Patient stated she was feeling anxious with all the visitors on the unit. Zyprexa Zydis 5 mg given.
--- NOTE | 2020-08-31 17:58 | PC.NURSE ---
PRN ATIVAN Patient remains anxious and paranoid and requested medication. Given 1 mg po of Ativan.
[2020-08-31] MEDS: hyDROXYzine 25 mg Capsule 50 MG PO (21:02)
--- NOTE | 2020-08-31 21:02 | PC.NURSE ---
PRN VISTARIL ADMINISTERED VISTARIL 50MG PO FOR PT C/O INCREASING ANXIETY. WILL MONITOR FOR MEDICATION EFFECTIVENESS.
[2020-09-01] MEDS: LORazepam 1 mg Tablet PO ×2 (00:29→18:26)
--- NOTE | 2020-09-01 00:29 | PC.NURSE ---
PRN ATIVAN ADMINISTERED ATIVAN 1 MG PO FOR PT C/O OF INCREASING ANXIETY. WILL MONITOR FOR MEDICATION EFFECTIVENESS.
[2020-09-01 06:00] VITALS: BP 92/58; PULSE 91; RESP 15; TEMP 36.8; O2SAT 92
[2020-09-01] MEDS: hydroCHLOROthiazide 25 mg Tablet 12.5 MG PO (08:43)
[2020-09-01] MEDS: paliperidone ER 6 mg Tablet PO (08:43)
[2020-09-01] MEDS: sulfamethoxazole-trimeth DS 160-800 mg Tablet 1 TAB PO ×2 (08:43→17:16)
[2020-09-01] MEDS: quetiapine 25 mg Tablet 50 MG PO ×2 (08:43→17:16)
[2020-09-01] MEDS: nicotine 2 mg Gum BUCCAL ×4 (08:43→16:40)
[2020-09-01] MEDS: albuterol 8 gm MDI 2 PUFF INHALATION (10:23)
[2020-09-01 10:24] VITALS: PULSE 130; RESP 18; O2SAT 92
[2020-09-01] MEDS: OLANZapine 5 mg ODT PO (11:40)
--- NOTE | 2020-09-01 11:42 | PC.NURSE ---
PRN ZYPREXA ZYDIS Patient stated she was getting anxious and requested medication. Given 5 mg zyprexa zydis po.
--- NOTE | 2020-09-01 12:17 | PM.NPN ---
Subjective NPU Subjective: Interval history: Sandra presents today reporting significant improvement in how she is feeling except for continued paranoia about her presents here on the unit. She continues to know that being here is the right thing though is extremely hard. We were able to agree to her meeting with the treatment team in the morning and discussing what her options are for rehab after discussion of the risks, benefits and alternatives of her staying. Mental Status Exam MSE Comments: This is an overweight versus obese white female with limited dress grooming and eye contact. No abnormal movements except for psychomotor retardation. Semicooperative with exam in mild to moderate distress. Speech decreased both rate and volume with improvement in response latency. Mood described as scared, affect congruent. Thought process organized. Thought content: Patient denied suicidal or homicidal ideation, she endorsed paranoid delusions and her paranoia was obvious, she endorses perceptual disturbances but could not elaborate. Attention and concentration were limited and memory was mostly reliable but none were formally tested. She is alert and oriented x3. Insight and judgment are fair and impulse control is impaired. Vitals/I&O/Wt Last Vital Signs Temp 97.9 F 09/01/20 22:00 Pulse 82 09/01/20 22:00 Resp 18 09/01/20 22:00 BP 93/59 09/01/20 22:00 Pulse Ox 93 09/01/20 22:00 Weight last 48 hrs Weight 72.575 kg Data NPU : 08/30/20 21:10 08/30/20 21:10 A&P Additional A&P Information (1) Acute psychosis: (2) Methamphetamine abuse: (3) Borderline personality disorder: (4) PTSD (post-traumatic stress disorder): Additional A&P Information This is a 40-year-old white female with psychosis with significant paranoia active addiction who is off of her medication for some time recently presenting reluctantly open to staying but invested in restarting her medication and getting into drug and alcohol treatment. 1. Continue current medication. 2. Continue every 15 minute checks for safety. 3. Encouraged individual, group and milieu therapies. 4. Recommend sober living treatment at the highest level of care to which she is willing to commit. Involuntary Hold Information 96 Hour Hold: 96 Hour Involuntary Admission: No Attestations NPU Medical Necessity Statement*: Inpatient hospitalization is medically necessary and the clinically appropriate intervention at this time. We will initiate/monitor medications and make changes as indicated. Likely length of stay 2-4 days. 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
[2020-09-01 14:00] VITALS: BP 90/60; PULSE 102; RESP 16; TEMP 37.1; O2SAT 97
[2020-09-01] MEDS: haloperidol 5 mg Tablet PO (14:02)
--- NOTE | 2020-09-01 14:02 | PC.NURSE ---
PRN HALDOL Patient continues to be anxious and paranoid. Requested medication. Given Haldol 5 mg PO.
[2020-09-01] MEDS: acetaminophen 325 mg Tablet 650 MG PO (16:40)
--- NOTE | 2020-09-01 18:32 | PC.NURSE ---
PRN ATIVAN Patient states she is feeling anxious and requested medication. Given 1 mg Ativan po.
[2020-09-01] MEDS: hyDROXYzine 25 mg Capsule 50 MG PO (20:56)
[2020-09-01 22:00] VITALS: BP 93/59; PULSE 82; RESP 18; TEMP 36.6; O2SAT 93
[2020-09-02] MEDS: OLANZapine 5 mg ODT PO (01:38)
[2020-09-02 06:00] VITALS: BP 100/69; PULSE 101; RESP 15; TEMP 36.6; O2SAT 94
[2020-09-02] MEDS: quetiapine 25 mg Tablet 50 MG PO (08:11)
[2020-09-02] MEDS: hydroCHLOROthiazide 25 mg Tablet 12.5 MG PO (08:11)
[2020-09-02] MEDS: sulfamethoxazole-trimeth DS 160-800 mg Tablet 1 TAB PO (08:11)
[2020-09-02] MEDS: paliperidone ER 6 mg Tablet PO (08:12)
[2020-09-02] MEDS: nicotine 2 mg Gum BUCCAL ×2 (08:12→16:33)
[2020-09-02] MEDS: hyDROXYzine 25 mg Capsule 50 MG PO ×2 (08:12→15:30)
[2020-09-02 09:33] VITALS: PULSE 101; RESP 16; O2SAT 94
[2020-09-02] MEDS: albuterol 8 gm MDI 2 PUFF INHALATION (09:33)
--- NOTE | 2020-09-02 09:48 | PC.RESP ---
SMOKING CESSATION INFORMATION SENT TO PATIENT.
[2020-09-02] MEDS: nicotine 21 mg Patch 1 PATCH TRANSDERMA (11:42)
[2020-09-02 14:07] VITALS: BP 91/57; PULSE 83; RESP 18; TEMP 36.8; O2SAT 91
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
[2020-09-02 17:48] VITALS: BP 91/57; PULSE 83; RESP 18; TEMP 36.8; O2SAT 91
== END 2020-09-02 17:57 | disposition home or self-care (01) | DRG 885 ==
LOC: ER 23:08 → NP 23:32
PROVIDERS: Emergency Medicine; Admitting Provider Psychiatry & Neurology Psychiatry; PCP Nurse Practitioner Family; Visit Provider Psychiatry & Neurology Psychiatry
DX: F23 Brief psychotic disorder (principal); R45.851 Suicidal ideations; F15.10 Other stimulant abuse, uncomplicated; F43.11 Post-traumatic stress disorder, acute; F60.3 Borderline personality disorder
CPT/HCPCS: 12345; 80053; 80306; 80307; 81001; 85025; 90471; 90686; 94640; 96372; 99284; G0378; J3535

== ENCOUNTER → 2020-09-09 13:20 | Outpatient (BNVA) | payer MEDICAID, SELFPAY | PROVIDERS: PCP Nurse Practitioner Family; Visit Provider Psychiatry & Neurology Psychiatry | DX: F43.10 Post-traumatic stress disorder, unspecified (principal); F60.3 Borderline personality disorder; F15.10 Other stimulant abuse, uncomplicated; F17.200 Nicotine dependence, unspecified, uncomplicated; F15.20 Other stimulant dependence, uncomplicated; F11.10 Opioid abuse, uncomplicated; F41.1 Generalized anxiety disorder | CPT/HCPCS: 99204 ==

== ENCOUNTER → 2020-09-23 07:57 | Outpatient (BNVA) | payer MEDICAID, SELFPAY | PROVIDERS: PCP Nurse Practitioner Family; Visit Provider Psychiatry & Neurology Psychiatry | DX: F43.10 Post-traumatic stress disorder, unspecified (principal); F15.20 Other stimulant dependence, uncomplicated; F17.200 Nicotine dependence, unspecified, uncomplicated; F11.10 Opioid abuse, uncomplicated | CPT/HCPCS: 99213 ==

== ENCOUNTER → 2020-10-01 07:56 | Outpatient (BNVA) | payer MEDICAID, SELFPAY | PROVIDERS: PCP Nurse Practitioner Family; Visit Provider Psychiatry & Neurology Psychiatry | DX: F60.3 Borderline personality disorder (principal); F15.20 Other stimulant dependence, uncomplicated; F17.200 Nicotine dependence, unspecified, uncomplicated; F11.20 Opioid dependence, uncomplicated | CPT/HCPCS: 99214 ==

== ENCOUNTER → 2020-10-04 07:26 | Outpatient (BNVA) | payer MEDICAID, SELFPAY | PROVIDERS: PCP Nurse Practitioner Family; Visit Provider Psychiatry & Neurology Psychiatry | DX: F60.3 Borderline personality disorder (principal); F43.10 Post-traumatic stress disorder, unspecified; F15.20 Other stimulant dependence, uncomplicated; F17.200 Nicotine dependence, unspecified, uncomplicated; F11.20 Opioid dependence, uncomplicated; F90.2 Attention-deficit hyperactivity disorder, combined type | CPT/HCPCS: 99213 ==

== ENCOUNTER → 2020-10-31 08:19 | Outpatient (BNVA) | payer MEDICAID, SELFPAY | PROVIDERS: PCP Nurse Practitioner Family; Visit Provider Psychiatry & Neurology Psychiatry | DX: F43.10 Post-traumatic stress disorder, unspecified (principal); F60.3 Borderline personality disorder; F15.20 Other stimulant dependence, uncomplicated; F17.200 Nicotine dependence, unspecified, uncomplicated; F11.20 Opioid dependence, uncomplicated | CPT/HCPCS: 99213 ==

== ENCOUNTER → 2020-12-05 08:28 | Outpatient (BNVA) | payer MEDICAID, SELFPAY | PROVIDERS: PCP Nurse Practitioner Family; Visit Provider Psychiatry & Neurology Psychiatry | DX: F43.10 Post-traumatic stress disorder, unspecified (principal); F60.3 Borderline personality disorder; F15.20 Other stimulant dependence, uncomplicated; F17.200 Nicotine dependence, unspecified, uncomplicated; F11.20 Opioid dependence, uncomplicated; F33.2 Major depressive disorder, recurrent severe without psychotic features | CPT/HCPCS: 99214 ==

== ENCOUNTER → 2020-12-06 13:01 | Outpatient (BNVA) | payer MEDICAID, SELFPAY | PROVIDERS: PCP Nurse Practitioner Family; Visit Provider Psychiatry & Neurology Psychiatry | DX: F60.3 Borderline personality disorder (principal); F43.10 Post-traumatic stress disorder, unspecified; F11.20 Opioid dependence, uncomplicated; F15.20 Other stimulant dependence, uncomplicated; F17.200 Nicotine dependence, unspecified, uncomplicated; Z79.899 Other long term (current) drug therapy | CPT/HCPCS: 80307; 96372; 99214 ==

== ENCOUNTER → 2020-12-09 16:13 | Outpatient (BNVA) | payer MEDICAID, SELFPAY | PROVIDERS: PCP Nurse Practitioner Family; Visit Provider Nurse Practitioner Family | DX: R19.7 Diarrhea, unspecified (principal) | CPT/HCPCS: 80048; 82607 ==

== ENCOUNTER → 2021-01-03 08:01 | Outpatient (BNVA) | payer MEDICAID, SELFPAY | PROVIDERS: PCP Nurse Practitioner Family; Visit Provider Psychiatry & Neurology Psychiatry | DX: F60.3 Borderline personality disorder (principal); F43.10 Post-traumatic stress disorder, unspecified; F17.200 Nicotine dependence, unspecified, uncomplicated; F11.20 Opioid dependence, uncomplicated; F15.20 Other stimulant dependence, uncomplicated | CPT/HCPCS: 99214 ==

== ENCOUNTER → 2021-01-07 11:17 | Outpatient (BNVA) | payer MEDICAID, SELFPAY | PROVIDERS: PCP Nurse Practitioner Family; Visit Provider Psychiatry & Neurology Psychiatry | DX: F43.10 Post-traumatic stress disorder, unspecified (principal); F60.3 Borderline personality disorder; F11.20 Opioid dependence, uncomplicated; F15.20 Other stimulant dependence, uncomplicated; F23 Brief psychotic disorder | CPT/HCPCS: 80307; 96372; 99214 ==

== ENCOUNTER → 2021-02-04 11:03 | Outpatient (BNVA) | payer MEDICAID, SELFPAY | PROVIDERS: PCP Nurse Practitioner Family; Visit Provider Psychiatry & Neurology Psychiatry | DX: F25.9 Schizoaffective disorder, unspecified (principal); F11.20 Opioid dependence, uncomplicated; F15.20 Other stimulant dependence, uncomplicated; F60.3 Borderline personality disorder; F43.10 Post-traumatic stress disorder, unspecified | CPT/HCPCS: 80307; 85025; 96372; 99214 ==

== ENCOUNTER → 2021-03-04 10:44 | Outpatient (BNVA) | payer MEDICAID, SELFPAY | PROVIDERS: PCP Nurse Practitioner Family; Visit Provider Psychiatry & Neurology Psychiatry | DX: F25.9 Schizoaffective disorder, unspecified (principal); F43.10 Post-traumatic stress disorder, unspecified; F17.200 Nicotine dependence, unspecified, uncomplicated; F11.20 Opioid dependence, uncomplicated; F15.20 Other stimulant dependence, uncomplicated | CPT/HCPCS: 96372; 99214 ==

== ENCOUNTER → 2021-04-01 13:47 | Outpatient (BNVA) | payer MEDICAID, SELFPAY | PROVIDERS: PCP Nurse Practitioner Family; Visit Provider Psychiatry & Neurology Psychiatry | DX: F25.9 Schizoaffective disorder, unspecified (principal); F43.10 Post-traumatic stress disorder, unspecified; F15.20 Other stimulant dependence, uncomplicated; F11.20 Opioid dependence, uncomplicated; F17.200 Nicotine dependence, unspecified, uncomplicated | CPT/HCPCS: 80307; 99214 ==

== ENCOUNTER 2021-04-15 08:00 | Outpatient (CLI) | payer MEDICAID, SELFPAY | END 2021-04-15 08:01 | disposition home or self-care (01) | LOC: LAB 05-21 15:51 | PROVIDERS: PCP Nurse Practitioner Family; Visit Provider Nurse Practitioner Family | DX: N89.8 Other specified noninflammatory disorders of vagina (principal) | CPT/HCPCS: 87070; 87205; 87491; 87591; 87661 ==

== ENCOUNTER 2021-04-25 08:35 | Outpatient (CLI) | payer MEDICAID, SELFPAY ==
[2021-04-25] MEDS: iohexol 300 mg/mL 50 mL Btl PO (10:01)
[2021-04-25] MEDS: iohexol 300 mg/mL 100 mL Btl IV (10:01)
--- NOTE | 2021-04-25 10:30 | CT_ITS ---
WS: [id number] CT scan of the abdomen and pelvis with Oral and IV contrast. Additional two-dimensional coronal and s agittal reconstruction was performed. 04/25/2021 Clinical Data: R10.84 - Generalized abdominal pain Comparison: CT abdomen and pelvis, 04/15/2020. DLP: 1042.[address] scans at [facility] use at least one of these dose optimization techniques: automat ed exposure control; mA and/or kV adjustment per patient size (includes targeted exams where dose is matched to clinical indication); or iterative reconstruction. Findings: The lower lungs show no nodules, masses or effusions. The spleen, adrenal glands and pancreas are normal. There is fatty infiltration of the liver. There are clips in the gallbladder fossa from a cholecystectomy. The kidneys show equal bilateral contrast excretion with with small nonobstructing calculi and probab le cysts unchanged. No hydronephrosis or mass is noted in the kidneys.. The abdominal aorta is normal in size. No appendicitis or diverticulitis is seen. Oral contrast is in the stomach and small bowel and there is no bowel dilatation. No abscess, adenopathy, ascites, mass, obstruction or free air is seen. The bladder is unremarkable. No inguinal hernia is seen. The patient had just had a fusion of the L1-L3 vertebral bodies with a cage inserted at L2. The patie nt had a right hip arthroplasty. CT/CT abdomen pelvis w con* [id number] Impression: 1. Small nonobstructing renal calculi. Incidental bilateral renal cysts. 2. Fatty infiltration of the liver. 3. Cholecystectomy. 4. Lumbar fusion and right hip arthroplasty. 5. Negative for acute intra-abdominal or pelvic abnormalities.
== END 2021-04-25 08:36 | disposition home or self-care (01) ==
PROVIDERS: PCP Nurse Practitioner Family; Visit Provider Nurse Practitioner Family
DX: R10.84 Generalized abdominal pain (principal); N20.0 Calculus of kidney; K76.0 Fatty (change of) liver, not elsewhere classified; Z98.1 Arthrodesis status; Z96.641 Presence of right artificial hip joint
CPT/HCPCS: 74177; 87070; 87205; 87491; 87591; 87661; Q9967

== ENCOUNTER → 2021-04-30 15:13 | Outpatient (BNVA) | payer MEDICAID, SELFPAY | PROVIDERS: PCP Nurse Practitioner Family; Visit Provider Nurse Practitioner | DX: F43.10 Post-traumatic stress disorder, unspecified (principal); F25.9 Schizoaffective disorder, unspecified; F11.20 Opioid dependence, uncomplicated; F17.200 Nicotine dependence, unspecified, uncomplicated; F15.21 Other stimulant dependence, in remission | CPT/HCPCS: 99214 ==

== ENCOUNTER → 2021-05-01 10:28 | Outpatient (BNVA) | payer MEDICAID, SELFPAY | PROVIDERS: PCP Nurse Practitioner Family; Visit Provider Psychiatry & Neurology Psychiatry | DX: F11.20 Opioid dependence, uncomplicated (principal); F15.21 Other stimulant dependence, in remission | CPT/HCPCS: 80307 ==

== ENCOUNTER → 2021-06-04 11:45 | Outpatient (BNVA) | payer MEDICAID, SELFPAY | PROVIDERS: PCP Nurse Practitioner Family; Visit Provider Psychiatry & Neurology Psychiatry | DX: F25.9 Schizoaffective disorder, unspecified (principal); F43.10 Post-traumatic stress disorder, unspecified; F17.200 Nicotine dependence, unspecified, uncomplicated; F11.20 Opioid dependence, uncomplicated; F15.20 Other stimulant dependence, uncomplicated | CPT/HCPCS: 96372; 99214 ==

== ENCOUNTER → 2021-07-02 09:51 | Outpatient (BNVA) | payer MEDICAID, SELFPAY | PROVIDERS: PCP Nurse Practitioner Family; Visit Provider Psychiatry & Neurology Psychiatry | DX: F25.9 Schizoaffective disorder, unspecified (principal); F11.20 Opioid dependence, uncomplicated; F15.20 Other stimulant dependence, uncomplicated | CPT/HCPCS: 80053; 80307; 85007; 85027; 99214 ==

== ENCOUNTER → 2021-07-14 11:38 | Outpatient (BNVA) | payer MEDICAID, SELFPAY | PROVIDERS: PCP Nurse Practitioner Family; Visit Provider Psychiatry & Neurology Psychiatry | DX: Z79.899 Other long term (current) drug therapy (principal) | CPT/HCPCS: 85025 ==

== ENCOUNTER → 2021-07-16 07:12 | Outpatient (BNVA) | payer MEDICAID, SELFPAY | PROVIDERS: PCP Nurse Practitioner Family; Visit Provider Psychiatry & Neurology Psychiatry | DX: F43.10 Post-traumatic stress disorder, unspecified (principal); F25.9 Schizoaffective disorder, unspecified; F17.200 Nicotine dependence, unspecified, uncomplicated; F15.20 Other stimulant dependence, uncomplicated; F11.20 Opioid dependence, uncomplicated | CPT/HCPCS: 99214 ==

== ENCOUNTER → 2021-08-15 11:11 | Outpatient (BNVA) | payer MEDICAID, SELFPAY | PROVIDERS: PCP Nurse Practitioner Family; Visit Provider Psychiatry & Neurology Psychiatry | DX: F25.9 Schizoaffective disorder, unspecified (principal); F11.20 Opioid dependence, uncomplicated; F15.20 Other stimulant dependence, uncomplicated; F17.200 Nicotine dependence, unspecified, uncomplicated | CPT/HCPCS: 80307; 85007; 85027; 99214 ==

== ENCOUNTER → 2021-08-21 10:11 | Outpatient (BNVA) | payer MEDICAID, SELFPAY | PROVIDERS: PCP Nurse Practitioner Family; Visit Provider Psychiatry & Neurology Psychiatry | DX: F25.9 Schizoaffective disorder, unspecified (principal); Z79.899 Other long term (current) drug therapy | CPT/HCPCS: 85007; 85027 ==

== ENCOUNTER → 2021-08-25 12:24 | Outpatient (BNVA) | payer OTHER, SELFPAY | PROVIDERS: PCP Nurse Practitioner Family; Visit Provider Nurse Practitioner Family | DX: J32.9 Chronic sinusitis, unspecified (principal); J01.00 Acute maxillary sinusitis, unspecified | CPT/HCPCS: 87635 ==

== ENCOUNTER → 2021-09-15 09:19 | Outpatient (BNVA) | payer MEDICAID, SELFPAY | PROVIDERS: PCP Nurse Practitioner Family; Visit Provider Psychiatry & Neurology Psychiatry | DX: F43.10 Post-traumatic stress disorder, unspecified (principal); F25.9 Schizoaffective disorder, unspecified; F17.200 Nicotine dependence, unspecified, uncomplicated; F15.20 Other stimulant dependence, uncomplicated; F11.20 Opioid dependence, uncomplicated | CPT/HCPCS: 99214 ==

== ENCOUNTER → 2021-09-16 11:22 | Outpatient (BNVA) | payer MEDICAID, SELFPAY | PROVIDERS: PCP Nurse Practitioner Family; Visit Provider Psychiatry & Neurology Psychiatry | DX: F11.20 Opioid dependence, uncomplicated (principal) | CPT/HCPCS: 80307 ==

== ENCOUNTER → 2021-09-24 13:57 | Outpatient (BNVA) | payer MEDICAID, SELFPAY | PROVIDERS: PCP Nurse Practitioner Family; Visit Provider Psychiatry & Neurology Psychiatry | DX: Z79.899 Other long term (current) drug therapy (principal); F25.9 Schizoaffective disorder, unspecified | CPT/HCPCS: 85007; 85027 ==

== ENCOUNTER → 2021-10-06 16:17 | Outpatient (BNVA) | payer MEDICAID, SELFPAY | PROVIDERS: PCP Nurse Practitioner Family; Visit Provider Nurse Practitioner Family | DX: R60.9 Edema, unspecified (principal); Z13.6 Encounter for screening for cardiovascular disorders | CPT/HCPCS: 80053; 80061; 84443; 85025 ==

== ENCOUNTER → 2021-10-14 15:09 | Outpatient (BNVA) | payer MEDICAID, SELFPAY | PROVIDERS: PCP Nurse Practitioner Family; Visit Provider Nurse Practitioner Family | DX: R10.31 Right lower quadrant pain (principal); Z68.37 Body mass index [BMI] 37.0-37.9, adult; F17.210 Nicotine dependence, cigarettes, uncomplicated; Z71.89 Other specified counseling | CPT/HCPCS: 80053; 81003; 83690; 85025 ==

== ENCOUNTER → 2021-10-27 07:38 | Outpatient (BNVA) | payer MEDICAID, SELFPAY | PROVIDERS: PCP Nurse Practitioner Family; Visit Provider Psychiatry & Neurology Psychiatry | DX: F43.10 Post-traumatic stress disorder, unspecified (principal); F25.0 Schizoaffective disorder, bipolar type; F15.20 Other stimulant dependence, uncomplicated; F17.200 Nicotine dependence, unspecified, uncomplicated; F11.20 Opioid dependence, uncomplicated | CPT/HCPCS: 99214 ==

== ENCOUNTER → 2021-11-04 10:18 | Outpatient (BNVA) | payer MEDICAID, SELFPAY | PROVIDERS: PCP Nurse Practitioner Family; Visit Provider Psychiatry & Neurology Psychiatry | DX: F25.0 Schizoaffective disorder, bipolar type (principal) | CPT/HCPCS: 80048; 85025 ==

== ENCOUNTER 2021-11-17 | Outpatient (CLI) | payer OTHER, SELFPAY | END 2021-11-17 00:01 | disposition home or self-care (01) | LOC: RADWPI 05-12 12:35 | PROVIDERS: PCP Nurse Practitioner Family; Visit Provider Nurse Practitioner Family | DX: F11.20 Opioid dependence, uncomplicated (principal) | CPT/HCPCS: 80307 ==

== ENCOUNTER → 2021-11-19 15:52 | Outpatient (BNVA) | payer MEDICAID, SELFPAY | PROVIDERS: PCP Nurse Practitioner Family; Visit Provider Nurse Practitioner Family | DX: F25.0 Schizoaffective disorder, bipolar type (principal) | CPT/HCPCS: 85007; 85027 ==

== ENCOUNTER → 2021-12-12 08:35 | Outpatient (BNVA) | payer MEDICAID, OTHER, SELFPAY | PROVIDERS: PCP Nurse Practitioner Family; Visit Provider Psychiatry & Neurology Psychiatry | DX: F15.20 Other stimulant dependence, uncomplicated (principal); F17.200 Nicotine dependence, unspecified, uncomplicated; F25.9 Schizoaffective disorder, unspecified; F11.20 Opioid dependence, uncomplicated | CPT/HCPCS: 99213 ==

== ENCOUNTER → 2021-12-22 11:37 | Outpatient (BNVA) | payer MEDICAID, OTHER, SELFPAY | PROVIDERS: PCP Nurse Practitioner Family; Visit Provider Psychiatry & Neurology Psychiatry | DX: F11.20 Opioid dependence, uncomplicated (principal); Z79.899 Other long term (current) drug therapy | CPT/HCPCS: 80307; 85007; 85027 ==

== ENCOUNTER → 2022-01-19 16:19 | Outpatient (BNVA) | payer MEDICAID, SELFPAY | PROVIDERS: PCP Nurse Practitioner Family; Visit Provider Nurse Practitioner Family | DX: Z20.822 Contact with and (suspected) exposure to COVID-19 (principal) | CPT/HCPCS: 87635 ==

== ENCOUNTER → 2022-01-23 07:34 | Outpatient (BNVA) | payer MEDICAID, SELFPAY | PROVIDERS: PCP Nurse Practitioner Family; Visit Provider Psychiatry & Neurology Psychiatry | DX: F25.0 Schizoaffective disorder, bipolar type (principal); F60.3 Borderline personality disorder; F11.20 Opioid dependence, uncomplicated; F15.20 Other stimulant dependence, uncomplicated; Z79.899 Other long term (current) drug therapy; F17.200 Nicotine dependence, unspecified, uncomplicated | CPT/HCPCS: 99214 ==

== ENCOUNTER → 2022-02-09 14:44 | Outpatient (BNVA) | payer MEDICAID, SELFPAY | PROVIDERS: PCP Nurse Practitioner Family; Visit Provider Nurse Practitioner Family | DX: G47.10 Hypersomnia, unspecified (principal); J01.00 Acute maxillary sinusitis, unspecified; F25.0 Schizoaffective disorder, bipolar type; F60.3 Borderline personality disorder | CPT/HCPCS: 85025 ==

== ENCOUNTER → 2022-03-06 12:49 | Outpatient (BNVA) | payer MEDICAID, SELFPAY | PROVIDERS: PCP Nurse Practitioner Family; Visit Provider Psychiatry & Neurology Psychiatry | DX: F25.0 Schizoaffective disorder, bipolar type (principal); Z79.899 Other long term (current) drug therapy; F11.20 Opioid dependence, uncomplicated; F17.200 Nicotine dependence, unspecified, uncomplicated; F15.20 Other stimulant dependence, uncomplicated; F43.10 Post-traumatic stress disorder, unspecified | CPT/HCPCS: 99214 ==

== ENCOUNTER → 2022-03-06 13:55 | Outpatient (BNVA) | payer MEDICAID, SELFPAY | PROVIDERS: PCP Nurse Practitioner Family; Visit Provider Psychiatry & Neurology Psychiatry | DX: Z79.899 Other long term (current) drug therapy (principal); F11.20 Opioid dependence, uncomplicated; F25.0 Schizoaffective disorder, bipolar type; F17.200 Nicotine dependence, unspecified, uncomplicated; F15.20 Other stimulant dependence, uncomplicated; F43.10 Post-traumatic stress disorder, unspecified | CPT/HCPCS: 80307; 85007; 85027 ==

== ENCOUNTER → 2022-04-17 10:57 | Outpatient (BNVA) | payer MEDICAID, SELFPAY | PROVIDERS: PCP Nurse Practitioner Family; Visit Provider Psychiatry & Neurology Psychiatry | DX: F25.0 Schizoaffective disorder, bipolar type (principal); Z79.899 Other long term (current) drug therapy; F11.20 Opioid dependence, uncomplicated; F15.20 Other stimulant dependence, uncomplicated; F17.200 Nicotine dependence, unspecified, uncomplicated; F60.3 Borderline personality disorder | CPT/HCPCS: 99214 ==

== ENCOUNTER → 2022-04-23 14:05 | Outpatient (BNVA) | payer MEDICAID, SELFPAY | PROVIDERS: PCP Nurse Practitioner Family; Visit Provider Psychiatry & Neurology Psychiatry | DX: F11.20 Opioid dependence, uncomplicated (principal); F25.9 Schizoaffective disorder, unspecified; Z79.899 Other long term (current) drug therapy | CPT/HCPCS: 80307; 85007; 85027 ==

== ENCOUNTER → 2022-06-01 15:53 | Outpatient (BNVA) | payer MEDICAID, OTHER, SELFPAY | PROVIDERS: PCP Nurse Practitioner Family; Visit Provider Psychiatry & Neurology Psychiatry | DX: F11.20 Opioid dependence, uncomplicated (principal); F25.0 Schizoaffective disorder, bipolar type; F60.3 Borderline personality disorder; F15.20 Other stimulant dependence, uncomplicated; F17.200 Nicotine dependence, unspecified, uncomplicated; F43.10 Post-traumatic stress disorder, unspecified; Z79.899 Other long term (current) drug therapy | CPT/HCPCS: 80307; 85007; 85027 ==

== ENCOUNTER → 2022-07-28 11:53 | Outpatient (BNVA) | payer MEDICAID, SELFPAY | PROVIDERS: PCP Nurse Practitioner Family; Visit Provider Psychiatry & Neurology Psychiatry | DX: F25.0 Schizoaffective disorder, bipolar type; Z79.899 Other long term (current) drug therapy | CPT/HCPCS: 85007; 85027 ==

== ENCOUNTER → 2022-08-18 10:31 | Outpatient (BNVA) | payer MEDICAID, SELFPAY | PROVIDERS: PCP Nurse Practitioner Family; Visit Provider Psychiatry & Neurology Psychiatry | DX: Z13.6 Encounter for screening for cardiovascular disorders (principal); R60.9 Edema, unspecified; F25.9 Schizoaffective disorder, unspecified; Z79.899 Other long term (current) drug therapy; F25.0 Schizoaffective disorder, bipolar type | CPT/HCPCS: 80053; 80061; 85007; 85027 ==

== ENCOUNTER → 2022-08-31 15:57 | Outpatient (BNVA) | payer MEDICAID, SELFPAY | PROVIDERS: PCP Nurse Practitioner Family; Visit Provider Psychiatry & Neurology Psychiatry | DX: F25.0 Schizoaffective disorder, bipolar type (principal); Z79.899 Other long term (current) drug therapy; F11.20 Opioid dependence, uncomplicated; F15.20 Other stimulant dependence, uncomplicated | CPT/HCPCS: 80307; 85007; 85027 ==

== ENCOUNTER → 2022-11-11 09:45 | Outpatient (BNVA) | payer MEDICAID, SELFPAY | PROVIDERS: PCP Nurse Practitioner Family; Visit Provider Psychiatry & Neurology Psychiatry | DX: F25.0 Schizoaffective disorder, bipolar type (principal); Z79.899 Other long term (current) drug therapy | CPT/HCPCS: 85007; 85027 ==

== ENCOUNTER → 2022-12-01 13:46 | Outpatient (BNVA) | payer MEDICAID, SELFPAY | PROVIDERS: PCP Nurse Practitioner Family; Visit Provider Psychiatry & Neurology Psychiatry | DX: Z79.899 Other long term (current) drug therapy (principal); F11.20 Opioid dependence, uncomplicated; F15.20 Other stimulant dependence, uncomplicated | CPT/HCPCS: 80307 ==

== ENCOUNTER → 2023-01-11 10:02 | Outpatient (BNVA) | payer MEDICAID, SELFPAY | PROVIDERS: PCP Nurse Practitioner Family; Visit Provider Psychiatry & Neurology Psychiatry | DX: F25.0 Schizoaffective disorder, bipolar type (principal); F25.9 Schizoaffective disorder, unspecified; Z79.899 Other long term (current) drug therapy | CPT/HCPCS: 85007; 85027 ==

== ENCOUNTER 2023-02-04 04:26 | Inpatient (IN) | payer MEDICAID, SELFPAY ==
[2023-02-04] VITALS (14 sets, daily range): BP systolic 105–140; BP diastolic 60–81; PULSE 80–131; RESP 16–25; TEMP 36.5–37.6; O2SAT 85–99
--- NOTE | 2023-02-04 04:33 | XRR_ITS ---
PROCEDURE INFORMATION: Exam: XR Chest Exam date and time: 02/04/2023 4:40 AM Age: 43 years old Clinical indication: Shortness of breath; Prior surgery; Surgery type: Thoracic fusion; Patient HX: SOB with fever. TECHNIQUE: Imaging protocol: Radiologic exam of the chest. Views: 1 view. COMPARISON: CT abdomen pelvis w con* [id number] 04/25/2021 10:14 AM FINDINGS: Lungs: No focal consolidation. Hazy opacity projects over both lung bases. Pleural spaces: There is no pleural effusion or pneumothorax. Heart/Mediastinum: Cardiomediastinal contours are unremarkable. Bones/joints: Bones are unremarkable. XR/XR chest 1V portable [id number] IMPRESSION: Opacity throughout the lung bases may be artifactual, related to overlying soft tissues. Interstitial edema or pleural effusions could also produce this finding.
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
[2023-02-04 04:42] LABS: Basophils % 0.3 %; Eosinophils # 0.1 10^3/uL (0.0-0.8); Hemoglobin 13.6 g/dL (11.5-15.3); Lymphocytes # 0.7 10^3/uL (0.8-4.8); Lymphocytes % 6.8 %; Mean Corpuscular HGB Conc 32.4 g/dL (30.0-36.0); Mean Corpuscular Hemoglobin 27.1 pg (28.0-34.0); Mean Corpuscular Volume 83.7 fl (81-99); Mean Platelet Volume 10.3 fL (7.4-10.4); Monocytes # 0.4 10^3/uL (0.2-0.9); Monocytes % 3.4 %; Neutrophils % 88.1 %; Nucleated Red Blood Cells % 0 %; Platelet Count 176 10^3/cmm (130-400); Red Blood Count 5.02 10^6/uL (4.1-5.3); Red Cell Distribution Width 13.4 % (12.1-15.1); White Blood Count 10.4 10^3/uL (4.0-10.0)
[2023-02-04] MEDS: sodium chloride 0.9% 1,000 ML 999 ML IV (04:43)
[2023-02-04] MEDS: acetaminophen 500 mg Tablet 1000 MG PO (04:45)
[2023-02-04] MEDS: albuterol 2.5 mg/3 mL Neb INHALATION ×4 (04:48→20:39)
--- NOTE | 2023-02-04 04:53 | ECG_ITS ---
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 Measurements Intervals [place] Rate: 125 P: 33 FL: 196 QRS: 35 QRSD: 98 T: 30 QT: 403 QTc: 583 Interpretive Statements SINUS TACHYCARDIA NONSPECIFIC ST & T-WAVE ABNORMALITY No previous ECG available for comparison Electronically Signed On 02-04-2023 7:41:[address] M.D. [id number]
[2023-02-04 05:03] LABS: ABG PCO2 42.4 mmHg (35-45); ABG PH Result 7.41 (7.35-7.45); Arterial Blood Gas Hematocrit 41.4 % (37-47); Blood Gas Allen Test Pos; Blood Gas Sample Site Radial, right; Blood Gas Sample Type Arterial; Carboxyhemoglobin 2.3 %THgb (0.4-20.1); HCO3 ABG 26.9 mmol/L (22-26); HGB O2 Sat 91.8 % (95-100); Methemoglobin 0.9 % (0.4-1.5); Oxygen Device NC; PO2 ABG 66.2 mmHg (80.0-100.0); Total Hemoglobin 13.5 g/dL (12-16)
[2023-02-04 05:07] LABS: Influenza A by IFA negative (Negative); Influenza B by IFA negative (Negative); SARS Covid-2 Antigen negative (Negative)
[2023-02-04 05:08] LABS: Alanine Aminotransferase 27 U/L (0-33); Albumin Level 3.6 g/dL (3.5-5.2); Alkaline Phosphatase 83 U/L (35-105); Anion Gap 15.2 (5-19); Aspartate Amino Transferase 18 U/L (0-32); Blood Urea Nitrogen 14 mg/dL (6-20); Carbon Dioxide 25 mmol/L (22-29); Chloride 103 mmol/L (98-107); Globulin 2.8 g/dL (1.3-4.6); Glomerular Filtration Rate 92.2 mL/min (90-130); Glucose 153 mg/dL (65-115); NT Pro B Type Natriuretic Pept 46 pg/mL (0-125); Osmolality Calculated 294 mOsm/kg (285-295); Potassium 3.2 mmol/L (3.5-5.1); Sodium 140 mmol/L (136-145); Total Bilirubin 0.5 mg/dL (0.15-1.2); Total Protein 6.4 g/dL (6.6-8.7)
[2023-02-04] MEDS: cefTRIAXone 1,000 MG in sodium chloride 0.9% (plus) 50 ML 100 MG IV (05:57)
[2023-02-04 06:05] LABS: D Dimer 0.75 ug/mIFEU (0-0.59)
--- NOTE | 2023-02-04 06:07 | CTR_ITS ---
PROCEDURE INFORMATION: Exam: CTA Chest With Contrast Exam date and time: 02/04/2023 7:23 AM Age: 43 years old Clinical indication: Cough and shortness of breath; Additional info: Assess for pe. Dyspnea, cough, productive green sputum, wheezing x several days, requiring 4l of o2 TECHNIQUE: Imaging protocol: Computed tomographic angiography of the chest with contrast. 3D rendering (Not supervised by radiologist): MIP and/or 3D reconstructed images were created by the technologist. Radiation optimization: All CT scans at this facility use at least one of these dose optimization techniques: automated exposure control; mA and/or kV adjustment per patient size (includes targeted exams where dose is matched to clinical indication); or iterative reconstruction. Contrast material: OMNI 350; Contrast volume: 100 ml; Contrast route: INTRAVENOUS (IV); REPORTING DATA: Count of CT and Cardiac NM exams in prior 12 months: This patient has received 0 known CTs and 0 known cardiac nuclear medicine studies in the 12 months prior to the current study. COMPARISON: CR (CHEST, ) 02/04/2023 4:40 AM RADIATION DOSE METRICS: Total DLP (mGy-cm): 394.36 FINDINGS: Pulmonary arteries: The pulmonary arteries are adequately opacified for evaluation to the subsegmental level. There is no filling defect to suggest embolism. Aorta: The aorta is unremarkable. There is no aneurysm. Lungs: There is diffuse bronchial wall thickening in the basal segments of the left lower lobe and lingula associated with mild patchy ground glass opacity and no consolidation. Pleural spaces: There is no pleural effusion or pneumothorax. Heart: Heart size is normal. There is no pericardial effusion. Lymph nodes: Mildly prominent left hilar lymph nodes are likely reactive. Liver: There is diffuse low-attenuation of the liver relative to the spleen consistent with fatty infiltration. Spleen: The spleen is mildly enlarged. Kidneys and ureters: There are calcified stones in both kidneys. Bones/joints: Bones are unremarkable. Soft tissues: The extrathoracic soft tissues are unremarkable. CT/CT angio chest PE protcl [id number] IMPRESSION: 1. Acute bronchitis in the left lower lobe and lingula. 2. No pulmonary embolism. 3. Hepatic steatosis. 4. Mildly enlarged spleen. 5. Bilateral nephrolithiasis.
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
[2023-02-04] MEDS: azithromycin 500 MG in sodium chloride 0.9% 250 ML 250 MG IV (06:38)
[2023-02-04] MEDS: potassium chloride ER 20 mEq Tablet PO (06:38)
[2023-02-04] MEDS: iohexol 350 mg/mL 500 mL Btl (per mL) IV (07:36)
[2023-02-04 07:37] LABS: Adenovirus Not Detected (NOT DETECT); Chlamydia Pneumoniae Not Detected (NOT DETECT); Coronavirus 229E,HKU1,NL63,OC4 Detected (NOT DETECT); Human Metapneumovirus Not Detected (NOT DETECT); Human Rhinovirus/Enterovirus Not Detected (NOT DETECT); Influenza A Not Detected (NOT DETECT); Influenza A H1 Not Detected (NOT DETECT); Influenza A H1-2009 Not Detected (NOT DETECT); Influenza A H3 Not Detected (NOT DETECT); Influenza B Not Detected (NOT DETECT); Mycoplasma Pneumoniae Not Detected (NOT DETECT); Parainfluenza Virus Type 1 Not Detected (NOT DETECT); Parainfluenza Virus Type 2 Not Detected (NOT DETECT); Parainfluenza Virus Type 3 Not Detected (NOT DETECT); Parainfluenza Virus Type 4 Not Detected (NOT DETECT); Respiratory Syncytial Virus A Not Detected (NOT DETECT); Respiratory Syncytial Virus B Not Detected (NOT DETECT); SARS-COV-2 Not Detected (NOT DETECT)
--- NOTE | 2023-02-04 07:44 | W.PM.EVENTAC ---
Event Note Event Note: Patient seen and examined. History reviewed. She is feeling somewhat better. Requesting nicotine patch. In agreement with treatment plan as outlined by Dr. Garvey. I have restarted many of her home medications.
[2023-02-04] MEDS: budesonide 0.5 mg/2 mL Neb 0.25 MG INHALATION ×2 (07:54→20:39)
[2023-02-04] MEDS: pantoprazole 40 mg SDV IVP (08:29)
[2023-02-04] MEDS: nicotine 21 mg Patch 1 PATCH TRANSDERMA (08:29)
[2023-02-04] MEDS: guaiFENesin 600 mg Tablet PO ×2 (08:29→17:39)
[2023-02-04] MEDS: enoxaparin 40 mg/0.4 mL Syringe SUBCUT (08:29)
[2023-02-04] MEDS: duloxetine 30 mg Capsule PO (08:29)
[2023-02-04] MEDS: buprenorphine-naloxone 4-1 mg Film 2 EACH SUBLINGUAL ×2 (08:30→17:40)
[2023-02-04] MEDS: cloZAPine 100 mg Tablet PO ×2 (10:07→17:39)
[2023-02-04] MEDS: hyDROXYzine 25 mg Capsule 50 MG PO (10:10)
[2023-02-04] MEDS: cloZAPine 25 mg Tablet 50 MG PO ×2 (10:16→17:39)
[2023-02-04] MEDS: quetiapine 100 mg Tablet 200 MG PO (20:08)
[2023-02-04] MEDS: prazosin 5 mg Capsule 10 MG PO (20:08)
[2023-02-04] MEDS: mirtazapine 15 mg Tablet PO (20:08)
[2023-02-05] VITALS (10 sets, daily range): BP systolic 99–118; BP diastolic 61–82; PULSE 60–115; RESP 14–19; TEMP 36.3–36.7; O2SAT 90–97
[2023-02-05] MEDS: albuterol 2.5 mg/3 mL Neb INHALATION ×4 (02:56→22:21)
[2023-02-05] MEDS: cefTRIAXone 1,000 MG in sodium chloride 0.9% (plus) 50 ML 100 MG IV (05:24)
[2023-02-05] MEDS: azithromycin 500 MG in sodium chloride 0.9% 250 ML 250 MG IV (05:57)
[2023-02-05 06:29] LABS: Basophils % 0.1 %; Hematocrit 39.4 % (37.0-47.0); Hemoglobin 12.5 g/dL (11.5-15.3); Lymphocytes # 0.8 10^3/uL (0.8-4.8); Lymphocytes % 6.2 %; Mean Corpuscular HGB Conc 31.7 g/dL (30.0-36.0); Mean Corpuscular Hemoglobin 27.3 pg (28.0-34.0); Mean Platelet Volume 11.5 fL (7.4-10.4); Monocytes # 0.4 10^3/uL (0.2-0.9); Monocytes % 3.2 %; Neutrophils # 11.35 10^3/uL (1.8-7.7); Neutrophils % 89.7 %; Nucleated Red Blood Cells % 0 %; Platelet Count 185 10^3/cmm (130-400); Red Blood Count 4.58 10^6/uL (4.1-5.3); Red Cell Distribution Width 13.9 % (12.1-15.1); White Blood Count 12.7 10^3/uL (4.0-10.0)
[2023-02-05 06:46] LABS: Blood Urea Nitrogen 10 mg/dL (6-20); Calcium 8.8 mg/dL (8.5-10.5); Carbon Dioxide 24 mmol/L (22-29); Chloride 109 mmol/L (98-107); Creatinine Clr Calc Pharmacy 151.9515; Glucose 140 mg/dL (65-115); Osmolality Calculated 295 mOsm/kg (285-295); Sodium 142 mmol/L (136-145)
[2023-02-05 07:02] LABS: Anion Gap 13.3 (5-19); Magnesium 2.3 mg/dL (1.7-2.3); Potassium 4.3 mmol/L (3.5-5.1)
[2023-02-05 07:15] LABS: Slide Review Slide Review Perform
--- NOTE | 2023-02-05 08:13 | PM.PN ---
Subjective Subjective: Sandra reports she is still wheezing quite a bit. Still producing purulent sputum. Still on 3 L of oxygen. It appears where her 04 100 and vitals were entered that she was on room air is an accurate. Medications: Reviewed: Yes Vitals/I&O/Wt Last Vital Signs Temp 97.8 F 02/05/23 04:00 Pulse 75 02/05/23 04:00 Resp 14 02/05/23 04:00 BP 110/74 02/05/23 04:00 Pulse Ox 95 02/05/23 04:00 O2 Del Method 02/05/23 04:00 O2 Flow Rate 3 02/05/23 03:02 02/04/23 02/05/23 02/05/23 22:59 06:59 14:59 Intake Total 800 / 1682 290 / 1972 250 / 250 Balance 800 / 1682 290 / 1972 250 / 250 Weight last 48 hrs Weight 83.915 kg Physical Exam Narrative: General exam no distress Neck is supple no lymphadenopathy thyromegaly Cardiovascular regular rate and rhythm without murmur. Heart rate is now within normal limits Lungs bilateral expiratory wheezes Abdomen is soft with positive bowel sounds Extremities no cyanosis clubbing or edema Skin no rash Data 02/05/23 06:00 02/05/23 06:00 Micro: Microbiology 02/04/23 05:40 Blood Culture - Preliminary Blood NEGATIVE TO DATE 02/04/23 05:40 Blood Culture - Preliminary Blood NEGATIVE TO DATE 02/04/23 09:20 Legionella Urinary Antigen - Final Urine,Voided Bacterial Antigens - Final 02/04/23 08:20 Gram Stain - Final Sputum - Expectorated Sputum A&P Assessment and plan (1) Acute respiratory failure with hypoxia: Patient appears to be significantly improving. She is still requiring oxygen but heart rate has decreased. She is still wheezing but feels less short of breath. She is adamant that she is not going to start smoking again. (2) Asthma: Severe exacerbation. Continue nebs Will need combination steroid and long-acting beta agonist along with short acting rescue medications on discharge Convert IV steroids to p.o. prednisone today (3) CAP (community acquired pneumonia): Acute bronchitis/early pneumonia. CTA shows no pulmonary embolism. Continue Rocephin and azithromycin Wean oxygen as tolerated Note SARS COVID studies are negative. COVID 229 E+. Sputum cultures obtained Legionella antigen negative, bacterial antigens negative (4) Hypokalemia: Resolved (5) Smoking addiction: Encouraged abstinence 3 to 5 minutes Plan Multiple other medical problems as listed in past medical history Full code Lovenox for DVT prophylaxis No need for laboratory tomorrow. Attestations Medical Necessity Statement*: Needs continued hospitalization for IV antibiotics secondary to clinical diagnosis of pneumonia, frequent breathing treatments and this patient still requiring oxygen. Diagnoses Acute respiratory failure with hypoxia J96.01 Asthma J45.909 CAP (community acquired pneumonia) J18.9 Hypokalemia E87.6 Smoking addiction F17.200 Time Spent (min) 20
[2023-02-05] MEDS: budesonide 0.5 mg/2 mL Neb 0.25 MG INHALATION ×2 (08:23→22:21)
[2023-02-05] MEDS: guaiFENesin 600 mg Tablet PO ×2 (08:48→17:27)
[2023-02-05] MEDS: nicotine 21 mg Patch 1 PATCH TRANSDERMA (08:48)
[2023-02-05] MEDS: duloxetine 30 mg Capsule PO (08:48)
[2023-02-05] MEDS: buprenorphine-naloxone 4-1 mg Film 2 EACH SUBLINGUAL ×2 (08:48→17:27)
[2023-02-05] MEDS: cloZAPine 25 mg Tablet 50 MG PO ×2 (08:48→17:27)
[2023-02-05] MEDS: cloZAPine 100 mg Tablet PO ×2 (08:48→17:28)
[2023-02-05] MEDS: enoxaparin 40 mg/0.4 mL Syringe SUBCUT (08:48)
[2023-02-05] MEDS: pantoprazole 40 mg SDV IVP (08:48)
[2023-02-05] MEDS: predniSONE 20 mg Tablet 40 MG PO (08:50)
[2023-02-05] MEDS: hyDROXYzine 25 mg Capsule 50 MG PO ×2 (12:02→17:27)
[2023-02-05] MEDS: quetiapine 100 mg Tablet 200 MG PO (20:12)
[2023-02-05] MEDS: mirtazapine 15 mg Tablet PO (20:13)
[2023-02-05] MEDS: prazosin 5 mg Capsule 10 MG PO (20:13)
[2023-02-06] VITALS (9 sets, daily range): BP systolic 104–114; BP diastolic 69–82; PULSE 76–96; RESP 14–18; TEMP 36.3–36.7; O2SAT 88–94
[2023-02-06] MEDS: albuterol 2.5 mg/3 mL Neb INHALATION ×2 (02:10→08:12)
[2023-02-06] MEDS: hyDROXYzine 25 mg Capsule 50 MG PO ×2 (05:31→12:59)
[2023-02-06] MEDS: cefTRIAXone 1,000 MG in sodium chloride 0.9% (plus) 50 ML 100 MG IV (05:31)
[2023-02-06] MEDS: azithromycin 500 MG in sodium chloride 0.9% 250 ML 250 MG IV (06:00)
[2023-02-06] MEDS: budesonide 0.5 mg/2 mL Neb 0.25 MG INHALATION (08:12)
[2023-02-06] MEDS: predniSONE 20 mg Tablet 40 MG PO (09:00)
[2023-02-06] MEDS: buprenorphine-naloxone 4-1 mg Film 2 EACH SUBLINGUAL (09:00)
[2023-02-06] MEDS: nicotine 21 mg Patch 1 PATCH TRANSDERMA (09:00)
[2023-02-06] MEDS: enoxaparin 40 mg/0.4 mL Syringe SUBCUT (09:00)
[2023-02-06] MEDS: cloZAPine 25 mg Tablet 50 MG PO (09:01)
[2023-02-06] MEDS: pantoprazole 40 mg SDV IVP (09:01)
[2023-02-06] MEDS: duloxetine 30 mg Capsule PO (09:01)
[2023-02-06] MEDS: cloZAPine 100 mg Tablet PO (10:43)
[2023-02-06] MEDS: guaiFENesin 600 mg Tablet PO (10:44)
--- NOTE | 2023-02-06 12:45 | PM.DCS ---
Discharge Providers Date of Admission: 02/04/23 05:36 Date of Discharge: February 06, 2023 Attending Provider at Admission: Chepe Garvey Attending Provider at Discharge: Rodríguez Michelle MD Primary Care Provider: HOLLI Calabrese Diagnoses at Discharge Discharge Diagnosis (1) Acute respiratory failure with hypoxia: Status: Acute (2) Asthma: Status: Acute (3) CAP (community acquired pneumonia): Status: Acute (4) Hypokalemia: Status: Acute (5) Smoking addiction: Status: Acute Reason for Visit Reason for Visit: RESP. ISSUES Brief History: History as per HPI: 43-year-old lady with history of asthma at home takes an inhaler, smoking addiction but she is quitting, bipolar disorder, schizoaffective disorder, PTSD, stimulant dependence in remission, presents due to several days of progressive dyspnea, cough, productive of green sputum, wheezing.? In ER with new oxygen requirement initially 8 L.? Sinus tachycardia up to 130s.? WBC 10.4.? Predominantly neutrophilic. Received breathing treatment with albuterol, started on dose of Solu-Medrol, ceftriaxone, azithromycin for suspected pneumonia, fluid bolus, acetaminophen.? With treatment some improvement in oxygenation down to 4 L nasal cannula.? Not normally on oxygen. At home lives with her mother who she states has recently recovered from some sort of respiratory illness. Rapid COVID-19 and influenza negative.? COVID-19 PCR pending. Hospital Course Hospital Course Patient was admitted to the hospital further evaluation and management of COPD and asthma exacerbation in setting of coronavirus infection not COVID-19. She was started on inhaler treatment along with IV steroids. Patient responded well to the treatment and oxygen supplementation trended down. She has been discharged in hemodynamically stable condition on oral steroids inhalation treatment and empiric antibiotics for next 7 days. Patient was encouraged in detail to continue abstinence from smoking. She has been advised to follow with a primary care provider within next 1 week. Physical Exam Narrative: General exam no distress Neck is supple no lymphadenopathy thyromegaly Cardiovascular regular rate and rhythm without murmur. Heart rate is now within normal limits Lungs bilateral expiratory wheezes Abdomen is soft with positive bowel sounds Extremities no cyanosis clubbing or edema Skin no rash Discharge Data Studies Completed and Pending Completed Studies During Hospitalization Category Date Time Status CTA chest [CT angio chest PE protcl [id number]] Stat Cat Scan 02/04/23 06:07 Completed XR chest 1V portable [id number] Stat Exams 02/04/23 04:33 Completed Pending at discharge Category Date Time Status Blood Culture Stat Lab 02/04/23 05:40 Results Sputum Culture and Gram Stain Routine Lab 02/04/23 08:20 Results Radiology Impressions Chest X-Ray 02/04/23 04:33 IMPRESSION: Opacity throughout the lung bases may be artifactual, related to overlying soft tissues. Interstitial edema or pleural effusions could also produce this finding. Chest CTA 02/04/23 06:07 IMPRESSION: 1. Acute bronchitis in the left lower lobe and lingula. 2. No pulmonary embolism. 3. Hepatic steatosis. 4. Mildly enlarged spleen. 5. Bilateral nephrolithiasis. Laboratory Results WBC 12.7 10^3/uL (4.0-10.0) H 02/05/23 06:00 RBC 4.58 10^6/uL (4.1-5.3) 02/05/23 06:00 Hgb 12.5 g/dL (11.5-15.3) 02/05/23 06:00 Hct 39.4 % (37.0-47.0) 02/05/23 06:00 MCV 86.0 fl (81-99) 02/05/23 06:00 MCH 27.3 pg (28.0-34.0) L 02/05/23 06:00 MCHC 31.7 g/dL (30.0-36.0) 02/05/23 06:00 RDW 13.9 % (12.1-15.1) 02/05/23 06:00 Plt Count 185 10^3/cmm (130-400) 02/05/23 06:00 MPV 11.5 fL (7.4-10.4) H 02/05/23 06:00 Neut % (Auto) 89.7 % 02/05/23 06:00 Lymph % (Auto) 6.2 % 02/05/23 06:00 Wharton % (Auto) 3.2 % 02/05/23 06:00 Eos % (Auto) 0.0 % 02/05/23 06:00 Baso % (Auto) 0.1 % 02/05/23 06:00 Neut # (Auto) 11.35 10^3/uL (1.8-7.7) H 02/05/23 06:00 Lymph # (Auto) 0.8 10^3/uL (0.8-4.8) 02/05/23 06:00 Wharton # (Auto) 0.4 10^3/uL (0.2-0.9) 02/05/23 06:00 Eos # (Auto) 0.0 10^3/uL (0.0-0.8) 02/05/23 06:00 Baso # (Auto) 0.0 10^3/uL (0.0-0.1) 02/05/23 06:00 Nucleated RBC % (auto) 0 % 02/05/23 06:00 Nucleated RBCs # 0.0 /100WBC 02/05/23 06:00 D-Dimer 0.75 ug/mIFEU (0-0.59) H 02/04/23 04:36 Specimen Type Arterial 02/04/23 05:00 Sample Site Radial, right 02/04/23 05:00 ABG pH 7.41 (7.35-7.45) 02/04/23 05:00 ABG pCO2 42.4 mmHg (35-45) 02/04/23 05:00 ABG pO2 66.2 mmHg (80.0-100.0) L 02/04/23 05:00 ABG HCO3 26.9 mmol/L (22-26) H 02/04/23 05:00 ABG Base Excess 2.0 mmol/L (-2.0-2.0) 02/04/23 05:00 Saurabh Test Pos 02/04/23 05:00 Hematocrit 41.4 % (37-47) 02/04/23 05:00 Hgb O2 Saturation 91.8 % (95-100) L 02/04/23 05:00 Carboxyhemoglobin 2.3 %THgb (0.4-20.1) 02/04/23 05:00 Methemoglobin 0.9 % (0.4-1.5) 02/04/23 05:00 Total Hemoglobin 13.5 g/dL (12-16) 02/04/23 05:00 O2 Delivery Device Nc 02/04/23 05:00 O2 Liters/Min 4.0 % 02/04/23 05:00 FiO2 2.0 % 02/04/23 05:00 Investigative Research Specialist ID Uzma 02/04/23 05:00 Sodium 142 mmol/L (136-145) 02/05/23 06:00 Potassium 4.3 mmol/L (3.5-5.1) 02/05/23 06:00 Chloride 109 mmol/L (98-107) H 02/05/23 06:00 Carbon Dioxide 24 mmol/L (22-29) 02/05/23 06:00 Anion Gap 13.3 (5-19) 02/05/23 06:00 BUN 10 mg/dL (6-20) 02/05/23 06:00 Creatinine 0.5 mg/dL (0.5-0.9) 02/05/23 06:00 GFR Calculation 136.0 mL/min (90-130) H 02/05/23 06:00 Glucose 140 mg/dL (65-115) H 02/05/23 06:00 Calculated Osmolality 295 mOsm/kg (285-295) 02/05/23 06:00 Calcium 8.8 mg/dL (8.5-10.5) 02/05/23 06:00 Magnesium 2.3 mg/dL (1.7-2.3) 02/05/23 06:00 Total Bilirubin 0.5 mg/dL (0.15-1.2) 02/04/23 04:36 AST 18 U/L (0-32) 02/04/23 04:36 ALT 27 U/L (0-33) 02/04/23 04:36 Alkaline Phosphatase 83 U/L (35-105) 02/04/23 04:36 NT-Pro-B Natriuret Pep 46 pg/mL (0-125) 02/04/23 04:36 Total Protein 6.4 g/dL (6.6-8.7) L 02/04/23 04:36 Albumin 3.6 g/dL (3.5-5.2) 02/04/23 04:36 Globulin 2.8 g/dL (1.3-4.6) 02/04/23 04:36 Coronavirus 229E (PCR) Detected (NOT DETECT) A 02/04/23 05:53 Influenza Type A Ag negative (Negative) 02/04/23 04:36 Influenza Type B Ag negative (Negative) 02/04/23 04:36 SARS-CoV-2 (PCR) Not detected (NOT DETECT) 02/04/23 05:53 SARS-CoV-2 Ag (Rapid) negative (Negative) 02/04/23 04:36 Vitals Last Vital Signs Temp 97.9 F 02/06/23 12:00 Pulse 86 02/06/23 12:00 Resp 15 02/06/23 12:00 BP 114/80 02/06/23 12:00 Pulse Ox 93 02/06/23 12:00 O2 Del Method 02/06/23 12:00 O2 Flow Rate 2 02/06/23 12:00 Discharge Plan Discharge Patient Disposition: Home Condition: Stable Prescriptions: New Trelegy Ellipta 200-62.5-25 mcg blister with device 1 inh inhalation Q24H Qty: 60 0RF albuterol sulfate 1.25 mg/3 mL solution for nebulization 2.5 mg inhalation Q6H PRN (Reason: shortness of breath or wheezing) Qty: 90 0RF prednisone 20 mg tablet 40 mg PO DAILY 3 Days Qty: 6 0RF cefdinir 300 mg capsule 300 mg PO BID 7 Days Qty: 14 0RF Continued buprenorphine-naloxone 8-2 mg film 1 film sublingual BID Qty: 60 2RF duloxetine [Cymbalta] 30 mg capsule,delayed release(DR/EC) 30 mg PO DAILY Qty: 30 2RF hydroxyzine HCl 50 mg tablet 50 mg PO QID PRN (Reason: anxiety) Qty: 120 2RF mirtazapine 15 mg tablet 15 mg PO .HS Qty: 30 2RF prazosin 5 mg capsule 10 mg PO .HS Qty: 60 2RF quetiapine [Seroquel] 100 mg tablet 200 mg PO .HS Qty: 60 2RF albuterol sulfate [Ventolin HFA] 90 mcg/actuation HFA aerosol inhaler See Rx Instructions .ROUTE .COMPLEX Qty: 18 0RF Dose Instruction: inhale TWO puffs into lungs EVERY 6 HOURS NEEDED SHORTNESS OF BREATH OR wheezing Rx Instructions: inhale TWO puffs into lungs EVERY 6 HOURS NEEDED SHORTNESS OF BREATH OR wheezing clozapine 100 mg tablet See Rx Instructions .ROUTE .COMPLEX Qty: 90 2RF Dose Instruction: TAKE 1 AND 1/2 TABLETS BY MOUTH TWICE DAILY Rx Instructions: TAKE 1 AND 1/2 TABLETS BY MOUTH TWICE DAILY Discontinued budesonide-formoterol [Symbicort] 160-4.5 mcg/actuation HFA aerosol inhaler See Rx Instructions .ROUTE .COMPLEX Qty: 10.2 0RF Dose Instruction: inhale TWO puffs BY MOUTH TWICE DAILY Rx Instructions: inhale TWO puffs BY MOUTH TWICE DAILY Discharge Orders: Discharge Order (Routine); Ordered 02/06/23 Ordered By: Rodríguez Michelle Other Ambulatory Orders: DME: Nebulizer with Neb Kit (Order) Location: None Selected Ordered By: Hernandez Avery DME: Oxygen (Order) Location: None Selected Ordered By: Rodríguez Michelle Referrals: [facility] [Outside] Selina Laird FNP [Primary Care Provider] - 7-10 days (message sent to clinic ) Discharge Diet: Regular Discharge Activity: Resume usual activity and Increase activity as tolerated Patient Instructions: Albuterol (By breathing), Prednisone (By mouth), Cefdinir (By mouth), Fluticasone/Umeclidinium/Vilanterol (By breathing), Opioid Safety Discharge Attestations Time Spent in Discharge Care*: greater than 30 min Specific Discharge Activities: educating patient, discussing with pcp/other providers, discussing with porter sample case/social workers/dc planners, documenting/other paperwork and evaluating patient/reviewing data Status at Discharge: Cognitive status at discharge: cognitively intact, Behavioral status at discharge: cooperative, Functional status at discharge: independent ambulation, Overall status at discharge: patient is back to baseline Quality Metrics Clinical Quality Measures [ No reported AMI, CVA or VTE this stay] Coding Level of Care Code 23738 Total time (in minutes) for Discharge: 50 Diagnoses Acute respiratory failure with hypoxia J96.01 Asthma J45.909 CAP (community acquired pneumonia) J18.9 Hypokalemia E87.6 Smoking addiction F17.200
== END 2023-02-06 14:26 | disposition home or self-care (01) | DRG 190 ==
LOC: ER 05:36 → MEDSURG 06:10
PROVIDERS: Admitting Provider Internal Medicine; Emergency Provider Emergency Medicine; PCP Nurse Practitioner Family; Visit Provider Student in an Organized Health Care Education/Training Program
DX: J44.0 Chronic obstructive pulmonary disease with (acute) lower respiratory infection (principal); J18.9 Pneumonia, unspecified organism; J96.01 Acute respiratory failure with hypoxia; J45.901 Unspecified asthma with (acute) exacerbation; B97.29 Other coronavirus as the cause of diseases classified elsewhere; F17.210 Nicotine dependence, cigarettes, uncomplicated; F25.0 Schizoaffective disorder, bipolar type; F43.10 Post-traumatic stress disorder, unspecified; Z79.51 Long term (current) use of inhaled steroids; F15.91 Other stimulant use, unspecified, in remission; F60.3 Borderline personality disorder; E87.6 Hypokalemia; G47.33 Obstructive sleep apnea (adult) (pediatric)
CPT/HCPCS: 36415; 36600; 71045; 71275; 80048; 80053; 82805; 83735; 83880; 85025; 85378; 86403; 87040; 87070; 87205; 87426; 87449; 87635; 87804; 93005; 94640; 94664; 94760; 96365; 96367; 96372; 96375; 99285; C9113; J0456; J0573; J0696; J1650; J2920; J2930; J3475; J7030; J7050; J7512; J7613; J7626; Q9967

== ENCOUNTER → 2023-02-23 13:49 | Outpatient (BNVA) | payer MEDICAID, SELFPAY | PROVIDERS: PCP Nurse Practitioner Family; Visit Provider Psychiatry & Neurology Psychiatry | DX: Z79.899 Other long term (current) drug therapy (principal); F11.20 Opioid dependence, uncomplicated; F15.20 Other stimulant dependence, uncomplicated; F25.0 Schizoaffective disorder, bipolar type; F60.3 Borderline personality disorder | CPT/HCPCS: 80307; 85007; 85027 ==

== ENCOUNTER → 2023-03-24 16:47 | Outpatient (BNVA) | payer MEDICAID, SELFPAY | PROVIDERS: PCP Nurse Practitioner Family; Visit Provider Nurse Practitioner Family | DX: R60.9 Edema, unspecified (principal); N89.8 Other specified noninflammatory disorders of vagina; Z79.899 Other long term (current) drug therapy | CPT/HCPCS: 80053; 84443; 85007; 85027; 86592; 87491; 87591; 87661; 87806 ==

== ENCOUNTER → 2023-05-10 09:25 | Outpatient (BNVA) | payer MEDICAID, SELFPAY | PROVIDERS: PCP Nurse Practitioner Family; Visit Provider Nurse Practitioner Family | DX: H61.23 Impacted cerumen, bilateral (principal); R73.03 Prediabetes; E78.5 Hyperlipidemia, unspecified; E66.01 Morbid (severe) obesity due to excess calories; E87.6 Hypokalemia; Z00.00 Encounter for general adult medical examination without abnormal findings; Z12.39 Encounter for other screening for malignant neoplasm of breast; R60.9 Edema, unspecified; J44.9 Chronic obstructive pulmonary disease, unspecified; M25.552 Pain in left hip; G89.29 Other chronic pain; M47.816 Spondylosis without myelopathy or radiculopathy, lumbar region | CPT/HCPCS: 80053; 80061; 82607; 83036; 84443; 85025 ==

== ENCOUNTER → 2023-06-16 15:23 | Outpatient (BNVA) | payer MEDICAID, SELFPAY | PROVIDERS: PCP Nurse Practitioner Family; Visit Provider Psychiatry & Neurology Psychiatry | DX: F11.20 Opioid dependence, uncomplicated (principal); F15.20 Other stimulant dependence, uncomplicated; Z79.899 Other long term (current) drug therapy; F25.0 Schizoaffective disorder, bipolar type; F60.3 Borderline personality disorder; F17.200 Nicotine dependence, unspecified, uncomplicated; F43.10 Post-traumatic stress disorder, unspecified | CPT/HCPCS: 80307; 85007; 85027 ==

== ENCOUNTER → 2023-07-26 11:11 | Outpatient (BNVA) | payer MEDICAID, SELFPAY | PROVIDERS: PCP Nurse Practitioner Family; Visit Provider Psychiatry & Neurology Psychiatry | DX: F25.0 Schizoaffective disorder, bipolar type (principal) | CPT/HCPCS: 85007; 85027 ==

== ENCOUNTER → 2023-09-15 15:43 | Outpatient (BNVA) | payer MEDICAID, SELFPAY | PROVIDERS: PCP Nurse Practitioner Family; Visit Provider Psychiatry & Neurology Psychiatry | DX: F11.20 Opioid dependence, uncomplicated (principal); F15.20 Other stimulant dependence, uncomplicated; Z79.899 Other long term (current) drug therapy; F25.0 Schizoaffective disorder, bipolar type; F60.3 Borderline personality disorder; F17.200 Nicotine dependence, unspecified, uncomplicated; F43.10 Post-traumatic stress disorder, unspecified | CPT/HCPCS: 80307 ==

== ENCOUNTER → 2023-09-30 14:00 | Outpatient (BNVA) | payer MEDICAID, SELFPAY | PROVIDERS: PCP Nurse Practitioner Family; Visit Provider Psychiatry & Neurology Psychiatry | DX: E78.5 Hyperlipidemia, unspecified (principal); F25.9 Schizoaffective disorder, unspecified; E66.01 Morbid (severe) obesity due to excess calories; R73.03 Prediabetes; Z79.899 Other long term (current) drug therapy | CPT/HCPCS: 80053; 80061; 84443; 85007; 85027 ==

== ENCOUNTER → 2023-11-17 13:26 | Outpatient (BNVA) | payer MEDICAID, SELFPAY ==
[2023-11-10 13:20] VITALS: BP 126/89; BMI 39.3
== END ==
PROVIDERS: PCP Nurse Practitioner Family; Visit Provider Psychiatry & Neurology Psychiatry
DX: F11.20 Opioid dependence, uncomplicated (principal); Z79.899 Other long term (current) drug therapy; F43.10 Post-traumatic stress disorder, unspecified; F25.9 Schizoaffective disorder, unspecified; F60.3 Borderline personality disorder; F15.20 Other stimulant dependence, uncomplicated
CPT/HCPCS: 80307; 85007; 85027

== ENCOUNTER → 2023-12-29 15:41 | Outpatient (BNVA) | payer MEDICAID, SELFPAY ==
[2023-11-10 13:20] VITALS: BP 126/89; BMI 39.3
== END ==
PROVIDERS: PCP Nurse Practitioner Family; Visit Provider Nurse Practitioner Family
DX: Z79.899 Other long term (current) drug therapy (principal); F25.0 Schizoaffective disorder, bipolar type
CPT/HCPCS: 80053; 80061; 85025

== ENCOUNTER → 2024-02-16 13:25 | Outpatient (BNVA) | payer MEDICAID, SELFPAY ==
[2023-11-10 13:20] VITALS: BP 126/89; BMI 39.3
== END ==
PROVIDERS: PCP Nurse Practitioner Family; Visit Provider Psychiatry & Neurology Psychiatry
DX: F11.20 Opioid dependence, uncomplicated (principal); Z79.899 Other long term (current) drug therapy; F25.9 Schizoaffective disorder, unspecified; F15.20 Other stimulant dependence, uncomplicated; F15.21 Other stimulant dependence, in remission; F43.10 Post-traumatic stress disorder, unspecified; F60.3 Borderline personality disorder
CPT/HCPCS: 80307

== ENCOUNTER → 2024-03-02 11:11 | Outpatient (BNVA) | payer MEDICAID, SELFPAY ==
[2023-11-10 13:20] VITALS: BP 126/89; BMI 39.3
== END ==
PROVIDERS: PCP Nurse Practitioner Family; Visit Provider Psychiatry & Neurology Psychiatry
DX: F25.9 Schizoaffective disorder, unspecified (principal); Z79.899 Other long term (current) drug therapy
CPT/HCPCS: 83036; 85007; 85027

== ENCOUNTER → 2024-04-19 10:52 | Outpatient (BNVA) | payer MEDICAID, SELFPAY ==
[2023-11-10 13:20] VITALS: BP 126/89; BMI 39.3
== END ==
PROVIDERS: PCP Nurse Practitioner Family; Visit Provider Psychiatry & Neurology Psychiatry
DX: F25.0 Schizoaffective disorder, bipolar type (principal); Z79.899 Other long term (current) drug therapy
CPT/HCPCS: 85007; 85027

== ENCOUNTER → 2024-07-03 14:14 | Outpatient (BNVA) | payer MEDICAID, SELFPAY ==
[2024-04-25 16:16] VITALS: BP 129/92; BMI 42.5
== END ==
PROVIDERS: PCP Nurse Practitioner Family
DX: Z79.899 Other long term (current) drug therapy (principal)
CPT/HCPCS: 85007; 85027

== ENCOUNTER → 2024-08-14 15:23 | Outpatient (BNVA) | payer MEDICAID, SELFPAY ==
[2024-08-14 12:55] VITALS: BP 129/92; BMI 42.5
== END ==
PROVIDERS: PCP Nurse Practitioner Family; Visit Provider Psychiatry & Neurology Psychiatry
DX: Z79.899 Other long term (current) drug therapy (principal); F25.0 Schizoaffective disorder, bipolar type; F25.9 Schizoaffective disorder, unspecified
CPT/HCPCS: 85007; 85027

== ENCOUNTER → 2024-09-14 11:30 | Outpatient (BNVA) | payer OTHER, SELFPAY ==
[2024-08-14 12:55] VITALS: BP 129/92; BMI 42.5
== END ==
PROVIDERS: PCP Nurse Practitioner Family; Visit Provider Psychiatry & Neurology Psychiatry
DX: F11.20 Opioid dependence, uncomplicated (principal); F15.20 Other stimulant dependence, uncomplicated; Z79.899 Other long term (current) drug therapy; F25.9 Schizoaffective disorder, unspecified
CPT/HCPCS: 80307

== ENCOUNTER → 2024-09-22 11:07 | Outpatient (BNVA) | payer SELFPAY ==
[2024-08-14 12:55] VITALS: BP 129/92; BMI 42.5
== END ==
PROVIDERS: PCP Nurse Practitioner Family; Visit Provider Psychiatry & Neurology Psychiatry
DX: F25.9 Schizoaffective disorder, unspecified (principal); Z79.899 Other long term (current) drug therapy
CPT/HCPCS: 85007; 85027

== ENCOUNTER → 2024-12-11 13:16 | Outpatient (BNVA) | payer MEDICAID, SELFPAY ==
[2024-12-11 11:41] VITALS: BP 129/92; BMI 42.5
== END ==
PROVIDERS: PCP Nurse Practitioner Family; Visit Provider Psychiatry & Neurology Psychiatry
DX: Z79.899 Other long term (current) drug therapy (principal)
CPT/HCPCS: 85025

== ENCOUNTER → 2024-12-26 09:18 | Outpatient (BNVA) | payer MEDICAID, SELFPAY ==
[2024-12-11 11:41] VITALS: BP 129/92; BMI 42.5
== END ==
PROVIDERS: PCP Nurse Practitioner Family; Visit Provider Nurse Practitioner Family
DX: E78.5 Hyperlipidemia, unspecified (principal)
CPT/HCPCS: 80053; 80061; 83036; 83735; 83880

== ENCOUNTER → 2025-01-26 10:49 | Outpatient (BNVA) | payer OTHER, SELFPAY ==
[2024-12-28 16:48] VITALS: BP 140/80; BMI 45.5
== END ==
PROVIDERS: PCP Nurse Practitioner Family; Visit Provider Psychiatry & Neurology Psychiatry
DX: F25.0 Schizoaffective disorder, bipolar type (principal); Z79.899 Other long term (current) drug therapy; F11.20 Opioid dependence, uncomplicated; F15.20 Other stimulant dependence, uncomplicated
CPT/HCPCS: 80307; 85007; 85027

== ENCOUNTER → 2025-02-22 11:28 | Outpatient (BNVA) | payer OTHER, SELFPAY ==
[2024-12-28 16:48] VITALS: BP 140/80; BMI 45.5
== END ==
PROVIDERS: PCP Nurse Practitioner Family; Visit Provider Psychiatry & Neurology Psychiatry
DX: F15.20 Other stimulant dependence, uncomplicated (principal); Z79.899 Other long term (current) drug therapy; F11.20 Opioid dependence, uncomplicated
CPT/HCPCS: 80307

== ENCOUNTER → 2025-05-30 13:13 | Outpatient (BNVA) | payer OTHER, SELFPAY ==
[2024-12-28 16:48] VITALS: BP 140/80; BMI 45.5
== END ==
PROVIDERS: PCP Nurse Practitioner Family; Visit Provider Psychiatry & Neurology Psychiatry
DX: F11.20 Opioid dependence, uncomplicated (principal); Z79.899 Other long term (current) drug therapy
CPT/HCPCS: 80307

== ENCOUNTER → 2025-08-23 13:12 | Outpatient (BNVA) | payer OTHER, SELFPAY ==
[2024-12-28 16:48] VITALS: BP 140/80; BMI 45.5
== END ==
PROVIDERS: PCP Nurse Practitioner Family; Visit Provider Psychiatry & Neurology Psychiatry
DX: F25.0 Schizoaffective disorder, bipolar type (principal); Z79.899 Other long term (current) drug therapy; F11.20 Opioid dependence, uncomplicated
CPT/HCPCS: 80307; 85007; 85027